=== PATIENT | male | born 1940 | race Two or more races ===

== ENCOUNTER 2017-10-16 14:23 | Emergency (ER) | payer MEDICARE, OTHER ==
[~2017-10-16] VITALS: Ht 170.2 cm; Wt 68.0 kg
--- NOTE | 2017-10-16 14:25 | NUR ---
AAOX3, BB DAUGHTER C/O CHEST PAIN STARTED 1 HR AGO. PLACED ON THE MONITOR AND HOSPITAL GOWN. RR IS EVEN AND UNLABORED WITH NAD NOTED. AWAITING MD FOR EVAL.
[2017-10-16 14:47] LABS: BASOPHILS # (AUTO) 0.2 /CMM (0.0-0.2); BASOPHILS % (AUTO) 3.1 % (0.0-2.0); EOSINOPHILS % (AUTO) 2.5 % (0.0-6.0); HEMATOCRIT 39 % (39-51); HEMOGLOBIN 12.9 g/dL (13.5-17.5); LYMPHOCYTES # (AUTO) 1.5 /CMM (0.8-4.8); LYMPHOCYTES % (AUTO) 21.9 % (20.0-44.0); MEAN CORPUSCULAR HEMOGLOBIN 30 PG (26.0-33.0); MEAN CORPUSCULAR HGB CONC 33 g/dl (31.0-36.0); MEAN CORPUSCULAR VOLUME 91 fL (80-96); MONOCYTES # (AUTO) 0.4 /CMM (0.1-1.30); MONOCYTES % (AUTO) 5.2 % (2.0-12.0); NEUTROPHILS # (AUTO) 4.5 /CMM (1.8-8.9); NEUTROPHILS % (AUTO) 67.3 % (43.0-81.0); PLATELET COUNT (AUTO) 311 /CMM (150-450); RDW COEFFICIENT OF VARIATION 13.4 (11.5-15.0); RED BLOOD CELL COUNT(AUTO) 4.27 MIL/uL (4.5-6.0); WHITE BLOOD COUNT (AUTO) 6.8 K/uL (4.3-11.0)
[2017-10-16 14:56] LABS: CALCIUM, SERUM 8.9 mg/dL (8.5-10.1); CARBON DIOXIDE 30 mmol/L (21-32); CHLORIDE 106 mmol/L (98-107); CREATININE 0.7 mg/dL (0.6-1.3); GLUCOSE 112 mg/dL (74-106); POTASSIUM 4.3 mmol/L (3.5-5.1); SODIUM SERUM 140 mmol/L (136-145); UREA NITROGEN, BLOOD 23 mg/dL (7-18)
[2017-10-16 15:00] LABS: INR 0.98 (0.85-1.15)
[2017-10-16 15:04] LABS: TROPONIN I 0.019 ng/mL (0.00-0.056)
[2017-10-16 15:38] LABS: APPEARANCE,URINE Cloudy (CLEAR); BILIRUBIN,URINE SMALL (NEGATIVE); BLOOD, URINE Large Ery/uL (NEGATIVE); KETONES,URINE Negative (NEGATIVE); LEUKOCYTE ESTERASE ,URINE Negative (NEGATIVE); NITRITE, URINE Negative (NEGATIVE); PH,URINE 5.5 (5.0-8.0); PROTEIN,URINE >=300 mg/dl (NEGATIVE); UGLUCOSE Negative (NEGATIVE)
[2017-10-16 15:39] LABS: COLOR,URINE DARK YELLOW (YELLOW)
[2017-10-16] MEDS ORDERED: LIDOCAINE 2% JEL UROJET 10 ML MM ONE (15:51)
[2017-10-16 16:01] LABS: BACTERIA,URINE None seen /HPF (None Seen); RBC,URINE 81-100 /HPF (0-2); SQUAMOUS EPITHELIAL CELL,UR Few /HPF (None Seen); WBC,URINE 0-3 /HPF (0-3)
[2017-10-16 16:02] LABS: CALCIUM OXALATE CRYSTALS,UR Moderate /HPF (None Seen); SPERM,URINE Few /HPF (None Seen)
--- NOTE | 2017-10-16 16:43 | NUR ---
IV removed. Catheter intact and site benign. Pressure and 4x4 applied to site. No bleeding noted.Patient discharged to home in stable condition. Written and verbal after care instructions given. Patient verbalizes understanding of instruction.
[2017-10-16 16:44] VITALS: BP 132/77
== END 2017-10-16 16:45 | disposition home or self-care (01) ==
LOC: ER 14:24
DX: R33.8 Other retention of urine (principal); R07.89 Other chest pain; I10 Essential (primary) hypertension; E78.00 Pure hypercholesterolemia, unspecified; Z90.89 Acquired absence of other organs; Z95.1 Presence of aortocoronary bypass graft
CPT/HCPCS: 36415; 51702; 71045; 80048; 81001; 84484; 85025; 85730; 93005; 99285; A4606; J3490; 81000-TC; Z7610

== ENCOUNTER 2019-06-21 11:34 | Emergency (ER) | payer MEDICARE, OTHER ==
[~2019-06-21] VITALS: Ht 170.2 cm; Wt 68.0 kg
--- NOTE | 2019-06-21 12:08 | NUR ---
sob x 3 days, worsening upon exertion. REPORTS SOME ABD PAIN/DISCOMFORT. O2 SAT 88%ON RA. PLACED ON 3L NC, O2 INCREASED TO 95%. PT IS MALAGASY-SPEAKING ONLY. DENIES COUGH, DIZZINESS, WEAKNESS. NO ACUTE DISTRESS NOTED. ON MONITOR AND READY FOR EVAL.
--- NOTE | 2019-06-21 12:32 | NUR ---
PT UNABLE TO PROVIDE URINE SAMPLE AT THIS TIME.
[2019-06-21 12:48] LABS: BASOPHILS % (AUTO) 0.7 % (0.0-2.0); EOSINOPHILS % (AUTO) 0.9 % (0.0-6.0); HEMATOCRIT 34 % (39-51); HEMOGLOBIN 10.9 g/dL (13.5-17.5); LYMPHOCYTES # (AUTO) 1.1 /CMM (0.8-4.8); LYMPHOCYTES % (AUTO) 16.9 % (20.0-44.0); MEAN CORPUSCULAR HGB CONC 32 g/dl (31.0-36.0); MEAN CORPUSCULAR VOLUME 84 fL (80-96); MONOCYTES # (AUTO) 0.6 /CMM (0.1-1.30); MONOCYTES % (AUTO) 9.2 % (2.0-12.0); NEUTROPHILS # (AUTO) 4.8 /CMM (1.8-8.9); NEUTROPHILS % (AUTO) 72.3 % (43.0-81.0); PLATELET COUNT (AUTO) 184 /CMM (150-450); RED BLOOD CELL COUNT(AUTO) 4.08 MIL/uL (4.5-6.0); WHITE BLOOD COUNT (AUTO) 6.6 K/uL (4.3-11.0)
[2019-06-21 12:59] LABS: CALCIUM, SERUM 8.5 mg/dL (8.5-10.1); CREATININE 1.3 mg/dL (0.6-1.3); POTASSIUM 4.4 mmol/L (3.5-5.1)
--- NOTE | 2019-06-21 13:16 | NUR ---
PT TAKEN TO RADIOLOGY VIA [facility]
[2019-06-21 13:17] LABS: ALBUMIN 3.1 g/dL (3.4-5.0); BILIRUBIN,DIRECT 0.2 mg/dL (0.0-0.2); BILIRUBIN,TOTAL 0.9 mg/dL (0.2-1.0); TOTAL PROTEIN, SERUM 6.9 g/dL (6.4-8.2)
--- NOTE | 2019-06-21 13:31 | NUR ---
PT BACK FROM RADIOLOGY. YEIMI WELL. WILL CONT TO MONITOR.
[2019-06-21] MEDS ORDERED: ACETAMINOPHEN ES 500 MG TABLET ONE (13:58)
--- NOTE | 2019-06-21 13:59 | NUR ---
Kimberlee blanc in [facility] - 06/21/19 at 1414 by JOCELIN NURSING SUP GAVE JANNETTE BED 102.
[2019-06-21] MEDS ORDERED: METO25TA20 PO (14:02)
[2019-06-21] MEDS ORDERED: AMLO2.5T4 PO (14:02)
[2019-06-21] MEDS ORDERED: BIMA2.5D5 EACHEYE (14:02)
[2019-06-21] MEDS ORDERED: TRAZ-182 PO (14:02)
[2019-06-21] MEDS ORDERED: PROP60CA38 PO (14:02)
[2019-06-21] MEDS ORDERED: ATOR40TA PO (14:02)
[2019-06-21] MEDS ORDERED: AMIO200T4 PO (14:02)
[2019-06-21] MEDS ORDERED: CLOP75TA15 PO (14:02)
[2019-06-21] MEDS ORDERED: TRAM50TA2 PO (14:02)
[2019-06-21] MEDS ORDERED: ERGO500040 PO (14:02)
[2019-06-21] MEDS ORDERED: ESCI10TA PO (14:02)
--- NOTE | 2019-06-21 14:14 | NUR ---
NURSING SUP GAVE 109 TELE.
[2019-06-21] MEDS ORDERED: ACETAMINOPHEN ES 500 MG TABLET PO ONE (14:30)
[2019-06-21] MEDS ORDERED: IV NS 0.9% 250 ML IV ONE (14:40)
[2019-06-21] MEDS ORDERED: CT SWABBABLE VALVE TRANS SET 1 EA INFUS.SET MC ONE (14:40)
[2019-06-21] MEDS ORDERED: IOHEXOL-350 100 ML VIAL IV ONE (14:40)
--- NOTE | 2019-06-21 15:47 | NUR ---
REPORT GIVEN TO CHRISTY THIBODEAUX FOR JANNETTE 109-T, NOY BRAGA ADMITTING
[2019-06-21] MEDS ORDERED: FUROSEMIDE 40 MG/4 ML VIAL ONE (16:56)
[2019-06-21] MEDS ORDERED: FUROSEMIDE 40 MG/4 ML VIAL IV STA (16:56)
--- NOTE | 2019-06-21 16:56 | NUR ---
CALLED [facility] WITH [facility]. THEY ARE ONLY ACCEPTING PTS WITH TRAUMA AND GRANDE AT THE MOMENT. TRYING [facility] LOZ[facility].
[2019-06-21 17:34] LABS: APPEARANCE,URINE Cloudy (CLEAR); BILIRUBIN,URINE Negative (NEGATIVE); BLOOD, URINE Moderate Ery/uL (NEGATIVE); COLOR,URINE Yellow (YELLOW); KETONES,URINE Negative (NEGATIVE); LEUKOCYTE ESTERASE ,URINE Small (NEGATIVE); NITRITE, URINE Positive (NEGATIVE); PROTEIN,URINE 30 mg/dl (NEGATIVE); UGLUCOSE Negative (NEGATIVE)
[2019-06-21 18:01] LABS: BACTERIA,URINE 3+ /HPF (None Seen)
--- NOTE | 2019-06-21 18:30 | NUR ---
DR. ANDREA ACCEPTING. ER TO INPATIENT FOR ICU BED. WE WILL WAIT FOR A NURSING TO NURSING REPORT AND IF BED ASSIGNMENT IS AVAILABLE, THEN THAT WILL BE GIVEN AFTER NURSING REPORT. ONCE REPORT IS GIVEN, THEN WE SET UP TRANSFER.
--- NOTE | 2019-06-21 18:52 | NUR ---
REPORT GIVEN TO CHRISTY WALLACE [phone] [facility] #2 ROOM ICU 8456
--- NOTE | 2019-06-21 19:01 | NUR ---
CALLED [facility] FOR [facility] TRANSPORT TO [facility] MALDONADO. ETA 25 MINUTES. TRIP NUMBER [id number].
[2019-06-21 19:22] VITALS: BP 126/82
--- NOTE | 2019-06-21 19:26 | NUR ---
REPORT GIVEN TO [facility] UN[facility] #[id number]
== END 2019-06-21 19:38 | disposition short-term general hospital (02) ==
LOC: ER 11:40 → TELE1 14:44 → UNDOADMIN 14:44 → ER 19:38
DX: I71.4 Abdominal aortic aneurysm, without rupture (principal); I11.0 Hypertensive heart disease with heart failure; I50.9 Heart failure, unspecified; N21.0 Calculus in bladder; I25.10 Atherosclerotic heart disease of native coronary artery without angina pectoris; E78.00 Pure hypercholesterolemia, unspecified
CPT/HCPCS: 36415; 71045; 71275; 74174; 74176; 80048; 80076; 81001; 83690; 83880; 84484; 85025; 93005; 96374; 99285; J1940; J7040; J7050; Q9967; 81000-TC

== ENCOUNTER 2019-07-27 20:35 | Inpatient (IN) | payer MEDICARE, OTHER ==
[~2019-07-27] VITALS: Ht 170.2 cm; Wt 72.1 kg
[~2019-07-27 20:35] MED LIST: AMIO200T4 PO; AMLO2.5T4 PO; ATOR40TA PO; BIMA2.5D5 EACHEYE; CLOP75TA15 PO; ERGO500040 PO; ESCI10TA PO; METO25TA20 PO; PROP60CA38 PO; TRAM50TA2 PO; TRAZ-182 PO
--- NOTE | 2019-07-27 20:35 | NUR ---
TO ER BED 2 AMBULATORY C/O SOB WITH BLE SWELLING X2 DAYS, LOWER ABD PRESSURE X2 DAYS. PT TRINIDADIAN SPEAKING ONLY, PT DAUGHTER AT BEDSIDE TO TRANSLATE. PT AAOX4 NO ACUTE DISTRESS NOTED, RESP EVEN AND UNLABORED. PLACE PT ON CARDIAC MONITORING, CONTINUOUS POX. LUNG SOUNDS CLEAR BILATERALLY ON AUSCULTATION. PENDING ER MD BULL.
--- NOTE | 2019-07-27 20:39 | NUR ---
ER MD AT BEDSIDE TO EVAL PT WITH ORDERS RECEIVED. WILL CARRY OUT ORDERS.
[2019-07-27] MEDS ORDERED: FUROSEMIDE 40 MG/4 ML VIAL ONE (20:57)
[2019-07-27] MEDS ORDERED: FUROSEMIDE 40 MG/4 ML VIAL IV ONE (21:00)
--- NOTE | 2019-07-27 21:02 | NUR ---
PT MEDICATED ORDERED.
[2019-07-27 21:03] LABS: BASOPHILS % (AUTO) 0.6 % (0.0-2.0); EOSINOPHILS % (AUTO) 2.2 % (0.0-6.0); HEMATOCRIT 32 % (39-51); LYMPHOCYTES # (AUTO) 1.1 /CMM (0.8-4.8); LYMPHOCYTES % (AUTO) 23.8 % (20.0-44.0); MEAN CORPUSCULAR HGB CONC 32 g/dl (31.0-36.0); MEAN CORPUSCULAR VOLUME 84 fL (80-96); MONOCYTES # (AUTO) 0.5 /CMM (0.1-1.30); MONOCYTES % (AUTO) 10.8 % (2.0-12.0); NEUTROPHILS % (AUTO) 62.6 % (43.0-81.0); PLATELET COUNT (AUTO) 148 /CMM (150-450); RED BLOOD CELL COUNT(AUTO) 3.79 MIL/uL (4.5-6.0); WHITE BLOOD COUNT (AUTO) 4.7 K/uL (4.3-11.0)
[2019-07-27 21:12] LABS: CALCIUM, SERUM 8.3 mg/dL (8.5-10.1); CARBON DIOXIDE 27 mmol/L (21-32); CHLORIDE 107 mmol/L (98-107); CREATININE 1.6 mg/dL (0.6-1.3); GLUCOSE 129 mg/dL (74-106); POTASSIUM 4.3 mmol/L (3.5-5.1); SODIUM SERUM 143 mmol/L (136-145); UREA NITROGEN, BLOOD 39 mg/dL (7-18)
[2019-07-27 21:24] LABS: ALANINE AMINOTRANSFERASE 50 U/L (12-78); ALBUMIN 3.1 g/dL (3.4-5.0); ALKALINE PHOSPHATASE 79 U/L (46-116); ASPARTATE AMINOTRANSFERASE 34 U/L (15-37); B-TYPE NATRIURETIC PEPTIDE 5984 PG/ML (0-125); BILIRUBIN,DIRECT 0.1 mg/dL (0.0-0.2); BILIRUBIN,TOTAL 0.4 mg/dL (0.2-1.0); TOTAL PROTEIN, SERUM 6.9 g/dL (6.4-8.2)
--- NOTE | 2019-07-27 21:24 | NUR ---
URINE SENT TO LAB
[2019-07-27 21:30] LABS: APPEARANCE,URINE SLIGHTLY HAZY (CLEAR); COLOR,URINE YELLOW (YELLOW)
[2019-07-27] MEDS ORDERED: ASPIRIN 81 MG TAB.CHEW ONE (21:30)
[2019-07-27] MEDS ORDERED: ASPIRIN 81 MG TAB.CHEW PO ONE (21:30)
[2019-07-27 21:31] LABS: BILIRUBIN,URINE NEGATIVE (NEGATIVE); BLOOD, URINE 1+ Ery/uL (NEGATIVE); KETONES,URINE NEGATIVE (NEGATIVE); PROTEIN,URINE NEGATIVE (NEGATIVE); UGLUCOSE NEGATIVE (NEGATIVE); UROBILINOGEN,URINE 0.2 EU/dL (0.2)
[2019-07-27 21:32] LABS: LEUKOCYTE ESTERASE ,URINE 3+ (NEGATIVE); NITRITE, URINE NEGATIVE (NEGATIVE); RBC,URINE 0-2 /HPF (0-2)
[2019-07-27 21:33] LABS: BACTERIA,URINE None seen /HPF (None Seen); SQUAMOUS EPITHELIAL CELL,UR Few /HPF (None Seen)
--- NOTE | 2019-07-27 21:33 | NUR ---
PER DAUGHTER PT WAS GIVEN 4 BABY ASPIRINS AND 40MG LASIX PO 2HRS AGO. VSS.
--- NOTE | 2019-07-27 21:33 | NUR ---
PER DAUGHTER DO NOT GIVE BLOOD THINNERS, "HE MIGHT HAVE SURGERY SOON"
--- NOTE | 2019-07-27 21:43 | NUR ---
ER MD SPOKE TO DR. LAUREN REGARDING PT ADMISSION. WILL CALL FOR REPORT.
--- NOTE | 2019-07-27 21:59 | NUR ---
REPORT CALLED TO ELECTRICAL PRODUCTS ENGINEERCHRISTY WRAY. WILL TRANSPORT PT VIA ACLS PROTOCOL.
[2019-07-27] MEDS ORDERED: CEFTRIAXONE 1 G in IV D5W 50 ML IV STA (22:00)
[2019-07-27] MEDS ORDERED: FURO40TA5 PO (22:00)
[2019-07-27] MEDS ORDERED: CEFTRIAXONE 1GM BAG (ER ONLY) 50 ML IV ONE (22:01)
--- NOTE | 2019-07-27 22:01 | NUR ---
MED RECON DONE.
[2019-07-27 22:40] VITALS: BP 134/84
[2019-07-27] MEDS ORDERED: HYDROCODONE/APAP 5/325MG 1 EACH TABLET PO PRN (23:30)
[2019-07-27] MEDS ORDERED: Z GUARD REMEDY 2 OZ OINT TP PRN (23:30)
[2019-07-27] MEDS ORDERED: ONDANSETRON HCL/PF 4 MG/2 ML VIAL IVP PRN (23:30)
[2019-07-27] MEDS ORDERED: ACETAMINOPHEN 325 MG TABLET PO PRN (23:30)
[2019-07-27] MEDS ORDERED: MAGNESIUM HYDROXIDE 30 ML UDC PO PRN (23:30)
[2019-07-27] MEDS ORDERED: MAG HYDROX/AL HYDROX/SIMETH 30 ML UDC PO PRN (23:30)
[2019-07-27] MEDS ORDERED: ZOLPIDEM TARTRATE 5 MG TABLET PO PRN (23:30)
[2019-07-28] VITALS (7 sets, daily range): BP systolic 123–137; BP diastolic 74–93
--- NOTE | 2019-07-28 06:08 | NUR ---
APPLICATION SUPPORT CONSULTANT NOTES AWAKE & RESPONSIVE. NOT IN ANY DISTRESS. NO SOB NOTED. DENIES ANY PAIN OR DISCOMFORT AT THIS TIME. ON TELE AFIB @ 80S WITH IV-HL PATENT & INTACT. MONITORED ACCORDINGLY. CALL LIGHT WITHIN REACH. BED IN LOWEST POSITION. SR UP X 2 FOR SAFETY. WILL ENDORSE TO NEXT SHIFT.
--- NOTE | 2019-07-28 07:30 | NUR ---
Tele/RN opening note Received patient AO x 4, able to responds all stimuli. Denied pain or any nauseate, skin is warm to touch, kept clean/dry, intact IV site. Pt has on kilgore cath. Respiratory even and unlabored in room air. Keep low position of bed with locked wheel and elevated head of bd for secure airway. Call light within reach, will contnue to monitor.
[2019-07-28 08:16] LABS: BASOPHILS % (AUTO) 0.3 % (0.0-2.0); EOSINOPHILS % (AUTO) 2.8 % (0.0-6.0); HEMATOCRIT 30 % (39-51); HEMOGLOBIN 9.5 g/dL (13.5-17.5); LYMPHOCYTES # (AUTO) 1.2 /CMM (0.8-4.8); LYMPHOCYTES % (AUTO) 28.2 % (20.0-44.0); MEAN CORPUSCULAR HGB CONC 32 g/dl (31.0-36.0); MEAN CORPUSCULAR VOLUME 82 fL (80-96); MONOCYTES # (AUTO) 0.5 /CMM (0.1-1.30); MONOCYTES % (AUTO) 10.2 % (2.0-12.0); NEUTROPHILS # (AUTO) 2.6 /CMM (1.8-8.9); NEUTROPHILS % (AUTO) 58.5 % (43.0-81.0); PLATELET COUNT (AUTO) 150 /CMM (150-450); RED BLOOD CELL COUNT(AUTO) 3.66 MIL/uL (4.5-6.0); WHITE BLOOD COUNT (AUTO) 4.4 K/uL (4.3-11.0)
[2019-07-28 08:38] LABS: CALCIUM, SERUM 7.9 mg/dL (8.5-10.1); CREATININE 1.3 mg/dL (0.6-1.3); MAGNESIUM 2.1 mg/dL (1.8-2.4); PHOSPHORUS 4.1 mg/dL (2.5-4.9); POTASSIUM 3.4 mmol/L (3.5-5.1)
[2019-07-28] MEDS: FUROSEMIDE 40 MG/4 ML VIAL IV SCH ×4 (09:00→17:26)
[2019-07-28] MEDS: METOPROLOL TARTRATE 25 MG TABLET PO SCH ×2 (09:04→17:25)
[2019-07-28] MEDS: ENOXAPARIN SODIUM 80 MG/0.8 ML DISP.SYRIN SQ SCH ×2 (09:06→21:06)
[2019-07-28 09:42] LABS: THYROID STIMULATING HORMONE 1.331 uIU/mL (0.358-3.74)
[2019-07-28] MEDS ORDERED: POTASSIUM CHLORIDE 20 MEQ TAB.PRT.SR PO SCH (11:30)
--- NOTE | 2019-07-28 14:40 | NUR ---
Patient Becca wants talk with MD, called [employer] and left message to call Laisha and her phone number.
--- NOTE | 2019-07-28 18:30 | NUR ---
Tele/RN Closing note Patient in bed comfortably, denies pain or discomfort. Skin is warm to touch, kept clean/dry, intact IV site. Pt is on kilgore catheter, and provided catheter care. Respiratory even and unlabored with room air. Keep in locked bed and low position, elevated head of bed for secure airway. Call light within reach, will endorse shift engineer.
--- NOTE | 2019-07-28 19:05 | NUR ---
cafe associate opening notes Received Pt from morning nurse. Pt is resting in bed comfortably. Pt is alert and orientedX4. Respiration is normal in room air. No SOB. No S/S of distress noted. Tele monitor showed Afib controlled HR at 86 bpm. IV sites at LAC# 20 is clean, intact and SL. Harley cath is clean, intact, patent and draining clear yellow urine. Safety precautions is maintained. Bed at low position, brakes locked, side rails upX2 and call light is within reach. Will continue to monitor.
[2019-07-28] MEDS: ATORVASTATIN 40 MG TABLET PO SCH (21:03)
[2019-07-29] VITALS (10 sets, daily range): BP systolic 112–138; BP diastolic 58–89
--- NOTE | 2019-07-29 06:50 | NUR ---
contour band saw operator vertical closing notes Pt is resting in bed comfortably. Pt is alert and orientedX4. Respiration is normal in room air. No SOB. No S/S of distress noted. Tele monitor showed Afib controlled HR at 95 bpm. VS is stable. Afebrile. Routine meds were given as ordered. IV sites at LAC# 20 is clean, intact and SL. Harley cath is clean, intact, patent and draining clear yellow urine. Kept Pt clean, dry and comfortable. All needs met and attended. Safety precautions is maintained. Bed at low position, brakes locked, side rails upX2 and call light is within reach. Will endorse to morning nurse for NASIM.
[2019-07-29 07:07] LABS: BASOPHILS % (AUTO) 0.6 % (0.0-2.0); EOSINOPHILS % (AUTO) 1.1 % (0.0-6.0); HEMATOCRIT 34 % (39-51); HEMOGLOBIN 10.9 g/dL (13.5-17.5); LYMPHOCYTES # (AUTO) 1.9 /CMM (0.8-4.8); LYMPHOCYTES % (AUTO) 30.7 % (20.0-44.0); MEAN CORPUSCULAR HGB CONC 32 g/dl (31.0-36.0); MEAN CORPUSCULAR VOLUME 81 fL (80-96); MONOCYTES # (AUTO) 0.6 /CMM (0.1-1.30); MONOCYTES % (AUTO) 10.4 % (2.0-12.0); NEUTROPHILS # (AUTO) 3.5 /CMM (1.8-8.9); NEUTROPHILS % (AUTO) 57.2 % (43.0-81.0); PLATELET COUNT (AUTO) 188 /CMM (150-450); RED BLOOD CELL COUNT(AUTO) 4.19 MIL/uL (4.5-6.0); WHITE BLOOD COUNT (AUTO) 6.2 K/uL (4.3-11.0)
[2019-07-29 07:20] LABS: ALANINE AMINOTRANSFERASE 42 U/L (12-78); ALBUMIN 3.1 g/dL (3.4-5.0); ALKALINE PHOSPHATASE 70 U/L (46-116); ASPARTATE AMINOTRANSFERASE 26 U/L (15-37); BILIRUBIN,TOTAL 0.5 mg/dL (0.2-1.0); CALCIUM, SERUM 8.9 mg/dL (8.5-10.1); CARBON DIOXIDE 31 mmol/L (21-32); CHLORIDE 103 mmol/L (98-107); CREATININE 1.7 mg/dL (0.6-1.3); GLUCOSE 111 mg/dL (74-106); MAGNESIUM 2.1 mg/dL (1.8-2.4); PHOSPHORUS 4.5 mg/dL (2.5-4.9); SODIUM SERUM 141 mmol/L (136-145); TOTAL PROTEIN, SERUM 7.1 g/dL (6.4-8.2); UREA NITROGEN, BLOOD 31 mg/dL (7-18)
--- NOTE | 2019-07-29 07:39 | NUR ---
MS/RN S/B Dr Gutierrez Seen by MD - labs ordered for tomorrow, MD to call and speak with patient's daughter to provide update as to plan of care.
[2019-07-29] MEDS: METOPROLOL TARTRATE 25 MG TABLET PO SCH ×2 (08:14→17:11)
[2019-07-29] MEDS: FUROSEMIDE 40 MG/4 ML VIAL IV SCH ×4 (08:14→17:11)
[2019-07-29] MEDS: ENOXAPARIN SODIUM 80 MG/0.8 ML DISP.SYRIN SQ SCH (08:20)
--- NOTE | 2019-07-29 08:20 | NUR ---
MS/RN Medications Patient refusing lovenox, educated as to the importance of receiving a blood thinner, but still refusung.
--- NOTE | 2019-07-29 08:50 | NUR ---
MS/RN S/B Dr Ambrose Seen by Dr Ambrose - lucy IVP ordered every three hours x3 doses.
--- NOTE | 2019-07-29 13:01 | NUR ---
MS/RN OP appointment Received call from daughter Sagar, stating that father has an outpatient appointment tomorrow morning for epidural injection in [place] at 10a. Wanted to make sure that it was documented that he had to be discharged before 9a tomorrow in order to make this. -Sagar
[2019-07-29] MEDS ORDERED: SOD FERRIC GLUC 125 MG in IV NS 0.9% 100 ML IV SCH (14:00)
--- NOTE | 2019-07-29 18:00 | NUR ---
MS/RN Lasix Lasix x3 doses administered as ordered.
--- NOTE | 2019-07-29 18:36 | NUR ---
MS/RN End note Exit care prepared ready for early discharge tomorrow. No shortness of breath noted, saturation on room air 96%. Continues to deny pain or discomfort. Updates as to plan of care provided to daughter. Will endorse to date night sitter. Per daughter, at the advice of patient's MD, do not given lovenox, plavix, aspirin coumadin as patient for epidural injectins tomorrow.
--- NOTE | 2019-07-29 19:00 | NUR ---
Received in bed eyeglasses on. smiling. speaks of going home early in the AM . denies pain no noted SOB
[2019-07-29] MEDS ORDERED: ENOXAPARIN SODIUM 40 MG/0.4 ML DISP.SYRIN SQ SCH (21:00)
[2019-07-29] MEDS: ATORVASTATIN 40 MG TABLET PO SCH (21:43)
--- NOTE | 2019-07-30 04:29 | NUR ---
ENDING NOTES: ALERT AND ORIENTATED X4 THIS 12 HOURS. PLEASENT AND SMILING, ENJOYS CONVERSATION WITH THE STAFF. TALKS ABOUT THE GOVERNMENT HIS HEALT, HOW GRATEFUL HE IS TO BE GETTING BETTER. HE AMBILATES USING A WALKER AND IS STEADY AMBULATING WITH THE WALKER. LEGS SWOLLEN 3 +. ACEWRAP ON THE BILATERAL LEGS D/T SORES ON THE HEELS. HE SLEEPS IN THE BEDSIDE CHAIR NOT GETTING INTO BED THIS 12 HOURS. NO SOB EVEN WHEN AMBULATING TO THE BATHROOM. MONGE DRAINAGE CLEAR YELLOW. MEDICATED Q 4 HOURS D/T PAIN GENERALIZED AND EFFECTIVE.
[2019-07-30 07:06] LABS: BASOPHILS % (AUTO) 0.6 % (0.0-2.0); EOSINOPHILS % (AUTO) 0.7 % (0.0-6.0); HEMATOCRIT 34 % (39-51); HEMOGLOBIN 11.1 g/dL (13.5-17.5); LYMPHOCYTES # (AUTO) 1.4 /CMM (0.8-4.8); LYMPHOCYTES % (AUTO) 28.1 % (20.0-44.0); MEAN CORPUSCULAR HGB CONC 33 g/dl (31.0-36.0); MEAN CORPUSCULAR VOLUME 81 fL (80-96); MONOCYTES # (AUTO) 0.6 /CMM (0.1-1.30); MONOCYTES % (AUTO) 12.5 % (2.0-12.0); NEUTROPHILS # (AUTO) 2.9 /CMM (1.8-8.9); NEUTROPHILS % (AUTO) 58.1 % (43.0-81.0); PLATELET COUNT (AUTO) 189 /CMM (150-450); RED BLOOD CELL COUNT(AUTO) 4.21 MIL/uL (4.5-6.0)
[2019-07-30 07:25] LABS: ALANINE AMINOTRANSFERASE 34 U/L (12-78); ALBUMIN 3.1 g/dL (3.4-5.0); ALKALINE PHOSPHATASE 66 U/L (46-116); ASPARTATE AMINOTRANSFERASE 22 U/L (15-37); BILIRUBIN,TOTAL 0.5 mg/dL (0.2-1.0); CALCIUM, SERUM 8.7 mg/dL (8.5-10.1); CARBON DIOXIDE 31 mmol/L (21-32); CHLORIDE 101 mmol/L (98-107); CREATININE 1.4 mg/dL (0.6-1.3); GLUCOSE 104 mg/dL (74-106); MAGNESIUM 2.2 mg/dL (1.8-2.4); PHOSPHORUS 4.7 mg/dL (2.5-4.9); POTASSIUM 3.2 mmol/L (3.5-5.1); SODIUM SERUM 139 mmol/L (136-145); TOTAL PROTEIN, SERUM 7.1 g/dL (6.4-8.2); UREA NITROGEN, BLOOD 32 mg/dL (7-18)
--- NOTE | 2019-07-30 07:25 | NUR ---
MS RN OPENING NOTES RECEIVED PT IN BED, AWAKE, A/O X4. PT ON RA, WITH NO ACUTE RESPIRATORY DISTRESS NOTED. PT DENIES ANY PAIN OR DISCOMFORT AT THIS TIME. PT CONCERNED ABOUT BEING DISCHARGE IN THE MORNING D/T 10AM MD APPOINTMENT. PIV TO LAC, INTACT AND OPERATIONAL. PER CONCRETE BOOM OPERATOR NURSE, DO NOT GIVE LOVENOX D/T TO PT WILL BE HAVING A SHOT GIVEN AT THE MD'S APPOINTMENT TODAY. RN TO FOLLOW-UP WITH HOSPITALIST WITH THE DISCHARGE ORDER. PT KEPT COMFORTABLE. CALL LIGHT KEPT WITHIN REACH. PT'S BED IN LOWEST, LOCKED POSITION WITH SRX3. WILL CONTINUE PLAN OF CARE.
[2019-07-30 08:00] VITALS: BP 140/80
[2019-07-30] MEDS ORDERED: POTASSIUM CHLORIDE 20 MEQ TAB.PRT.SR PO ONE (08:30)
[2019-07-30] MEDS: FUROSEMIDE 40 MG/4 ML VIAL IV SCH (08:35)
[2019-07-30 08:37] VITALS: BP 144/87
[2019-07-30] MEDS: METOPROLOL TARTRATE 25 MG TABLET PO SCH (08:37)
--- NOTE | 2019-07-30 09:15 | NUR ---
MS EVENT COORDINATOR NOTES PT AWAKE, A/O X4. PT ON RA, WITH NO ACUTE RESPIRATORY DISTRESS NOTED. PT DENIES ANY PAIN OR DISCOMFORT AT THE TIME OF DISCHARGE. PIV TO LAC, REMOVED AND APPLIED DRY DRESSING. PT TO DISCHARGE HOME THIS EARLY D/T MD'S APPOINTMENT OUTPATIENT. PT ABLE TO REVIEW AND SIGN DISCHARGE INSTRUCTIONS AND INVENTORY LIST. ALL BELONGINGS WITH THE PATIENT. ALL NEEDS AND CARE ATTENDED. FC IN PLACE. SKIN INTACT, NO PICTURES FILED IN THE CHART. HOSPITALIST/AP/DNP AND CHARGE NURSE/ROLO AWARE OF DISCHARGE. PT LET THE UNIT AT 0902. VS STABLE AND RECORDED.
== END 2019-07-30 09:00 | disposition home or self-care (01) | DRG 291 ==
LOC: ER 20:40 → TELE 21:48 → MED 07-29 10:58
PROVIDERS: ADMIT Student in an Organized Health Care Education/Training Program; ATTEND Hospitalist
DX: I11.0 Hypertensive heart disease with heart failure (principal); N17.0 Acute kidney failure with tubular necrosis; D68.59 Other primary thrombophilia; E44.1 Mild protein-calorie malnutrition; I50.23 Acute on chronic systolic (congestive) heart failure; E11.9 Type 2 diabetes mellitus without complications; I48.91 Unspecified atrial fibrillation; I25.10 Atherosclerotic heart disease of native coronary artery without angina pectoris; D63.8 Anemia in other chronic diseases classified elsewhere; E78.5 Hyperlipidemia, unspecified; Z68.24 Body mass index [BMI] 24.0-24.9, adult; Z95.1 Presence of aortocoronary bypass graft; Z91.14 Patient's other noncompliance with medication regimen; N40.0 Benign prostatic hyperplasia without lower urinary tract symptoms; E87.6 Hypokalemia; I71.4 Abdominal aortic aneurysm, without rupture
CPT/HCPCS: 36415; 71045-TC; 80048-TC; 80053-TC; 80061-TC; 80076-TC; 81000-TC; 83540-TC; 83690-TC; 83735-TC; 83880; 84100-TC; 84443-TC; 84484-TC; 85025-TC; 85730-TC; 87081-TC; 87086-TC; 87186-TC; 93307-TC; G0378; J0696; J1650; J1940; J2916; J7030; J7060

== ENCOUNTER 2019-08-09 16:44 | Emergency (ER) | payer MEDICARE, OTHER ==
[~2019-08-09] VITALS: Ht 165.1 cm; Wt 70.3 kg
[~2019-08-09 16:44] MED LIST changes: -AMLO2.5T4 PO; -BIMA2.5D5 EACHEYE; -ERGO500040 PO; -ESCI10TA PO; +FURO40TA5 PO; -PROP60CA38 PO; -TRAM50TA2 PO; -TRAZ-182 PO
--- NOTE | 2019-08-09 16:59 | NUR ---
PT AAOX4. AMBULATORY WITH STEADY GAIT. BIBSELF C/O BLOCKED CATHETER X3 HOURS SUPERVISOR ESTERS AND EMULSIFIERS. PLACED IN GOWN, ON MONITOR AND PULSE OX. VSS. AWAITING MD FOR EVAL.
--- NOTE | 2019-08-09 17:21 | NUR ---
MD AT BEDSIDE SPEAKING TO DAUGHTER.
--- NOTE | 2019-08-09 17:35 | NUR ---
EMT ON PHONE WITH PT'S UROLOGIST REGARDING CATHETER PALCEMENT.
--- NOTE | 2019-08-09 17:48 | NUR ---
CALLED ACQUISITION ANALYST UROLOGIST DR. DOWLING, SPOKE WITH DR. FRANKLIN
--- NOTE | 2019-08-09 18:05 | NUR ---
PER MD ORDER TO IRIGATE CATH. UNABLE TO FLUSH CATHETER.
--- NOTE | 2019-08-09 18:57 | NUR ---
urine sent to lab
--- NOTE | 2019-08-09 19:11 | NUR ---
Leg kilgore catheter changed per sterile protocal. Immediate output 100 ML of urine.
--- NOTE | 2019-08-09 19:12 | NUR ---
awaiting urine sample
[2019-08-09 19:21] LABS: APPEARANCE,URINE Cloudy (CLEAR); BILIRUBIN,URINE Negative (NEGATIVE); BLOOD, URINE Large Ery/uL (NEGATIVE); KETONES,URINE Negative (NEGATIVE); LEUKOCYTE ESTERASE ,URINE Negative (NEGATIVE); NITRITE, URINE Negative (NEGATIVE); PROTEIN,URINE >=300 mg/dl (NEGATIVE); UGLUCOSE Negative (NEGATIVE); UROBILINOGEN,URINE 0.2 EU/dL (0.2)
[2019-08-09 19:22] LABS: COLOR,URINE RED (YELLOW)
[2019-08-09 19:24] LABS: BACTERIA,URINE Few /HPF (None Seen); RBC,URINE TOO NUMEROUS TO COUN /HPF (0-2); SQUAMOUS EPITHELIAL CELL,UR Few /HPF (None Seen)
--- NOTE | 2019-08-09 19:38 | NUR ---
PT CLEARED FOR DISCHARGE PER DR. FRANKLIN. IV removed. Catheter intact and site benign. Pressure and 4x4 applied to site. No bleeding noted. Patient discharged to home in stable condition. Written and verbal after care instructions given. Patient verbalizes understanding of instruction. PT ambulatory with a steady gait
[2019-08-09 19:41] VITALS: BP 116/68
== END 2019-08-09 19:42 | disposition home or self-care (01) ==
LOC: ER 16:52
DX: T83.098A Other mechanical complication of other urinary catheter, initial encounter (principal); R33.9 Retention of urine, unspecified; R31.9 Hematuria, unspecified; I11.0 Hypertensive heart disease with heart failure; I50.9 Heart failure, unspecified; I48.91 Unspecified atrial fibrillation; I25.10 Atherosclerotic heart disease of native coronary artery without angina pectoris; E78.00 Pure hypercholesterolemia, unspecified; E78.5 Hyperlipidemia, unspecified; Z90.79 Acquired absence of other genital organ(s); Z95.1 Presence of aortocoronary bypass graft; Z79.899 Other long term (current) drug therapy
CPT/HCPCS: 81000-TC

== ENCOUNTER 2019-08-11 02:09 | Emergency (ER) | payer MEDICARE, OTHER ==
[~2019-08-11] VITALS: Ht 165.1 cm; Wt 70.3 kg
[2019-08-11 02:18] VITALS: BP 128/79
[2019-08-11] MEDS ORDERED: LIDOCAINE 2% JEL UROJET 10 ML MM ONE (02:32)
--- NOTE | 2019-08-11 03:01 | NUR ---
Patient discharged to home in stable condition. Written and verbal after care instructions given. Patient verbalizes understanding of instruction. ambulatory with a steady gait
== END 2019-08-11 03:02 | disposition home or self-care (01) ==
LOC: ER 02:17
DX: T83.031A Leakage of indwelling urethral catheter, initial encounter (principal); I48.91 Unspecified atrial fibrillation; I11.0 Hypertensive heart disease with heart failure; I50.9 Heart failure, unspecified; E78.00 Pure hypercholesterolemia, unspecified; Z98.890 Other specified postprocedural states; Z79.899 Other long term (current) drug therapy
CPT/HCPCS: 51702; 99284; J3490

== ENCOUNTER 2019-08-13 02:48 | Emergency (ER) | payer MEDICARE, OTHER ==
[~2019-08-13] VITALS: Ht 165.1 cm; Wt 70.3 kg
--- NOTE | 2019-08-13 03:00 | NUR ---
BIBFAMILY C/O URINARY RETENTION, MONGE CATH INSERTED X2 DAYS AGO.PT W/ A 26F F/C CONNECTED TO THE LEG BAG IN PLACE. URINARY BAG EMPTY W/ NO UO. NOTED W/ LEAKING BLOOD CLOT AROUND THE CATHETER. PT IS HAVING AN UPCOMING APPOINTMENT WITH HIS UROLOGIST AT 1400
[2019-08-13] MEDS ORDERED: LIDOCAINE 2% JEL UROJET 10 ML MM ONE (03:01)
--- NOTE | 2019-08-13 03:30 | NUR ---
F/C WAS REPLACED AND BLADDER WAS IRRIGATED W/ 500ML OF NORMAL SALINE. NOTED W/ BRIGHT RED URINE. PT TOLERATED THE PROCEDURE WELL. MONGE CATH WAS CONNECTED TO A URINARY BAG. WILL CONT TO MONITOR ,
--- NOTE | 2019-08-13 04:06 | NUR ---
F/C WAS FLUSHED W/ 60CC OF NS
--- NOTE | 2019-08-13 04:45 | NUR ---
MONGE WAS FLUSHED W/ 20CC OF NS.
--- NOTE | 2019-08-13 05:50 | NUR ---
AT THE BED SIDE SPEAKING TO THE PT AND HIS DTR
--- NOTE | 2019-08-13 06:00 | NUR ---
PT W/ CONSTANT COMPLAIN OF DISCOMFORT ON THE CATHETER SITE AND REQUESTING TO REMOVE THE CATHETER. SPOKE TO THE PT AND THE DTR. PER DR HOANG'S ORDER F/C WAS D/C'D. PT TOLERSTED THE PROCEDURE WELL ABD TO URINATE TO A 50ML OF RED URINE.
[2019-08-13] MEDS ORDERED: HYDROCODONE/APAP 5/325MG 1 EACH TABLET ONE (06:08)
--- NOTE | 2019-08-13 06:15 | NUR ---
Patient discharged to home in stable condition. Written and verbal after care instructions given. Patient verbalizes understanding of instruction. dtr was instructed to come back to the ER if pt unable to urinate in 4-6 hrs.
[2019-08-13 06:16] VITALS: BP 118/65
[2019-08-13] MEDS ORDERED: HYDROCODONE/APAP 5/325MG 1 EACH TABLET PO ONE (06:30)
== END 2019-08-13 06:17 | disposition home or self-care (01) ==
LOC: ER 02:51
DX: R33.9 Retention of urine, unspecified (principal); I11.0 Hypertensive heart disease with heart failure; I50.9 Heart failure, unspecified; I48.91 Unspecified atrial fibrillation; E78.00 Pure hypercholesterolemia, unspecified; Z98.890 Other specified postprocedural states; Z79.899 Other long term (current) drug therapy
CPT/HCPCS: 51702; 99284; J3490

== ENCOUNTER 2021-03-06 03:41 | Inpatient (IN) | payer MEDICARE, OTHER ==
[~2021-03-06] VITALS: Ht 160 cm; Wt 63.5 kg
[~2021-03-06 03:41] MED LIST changes: -AMIO200T4 PO; +AMIO200T5 PO
--- NOTE | 2021-03-06 04:18 | NUR ---
PATIENT BIBFAMILY C/O ELAVATED HEART RATE AT HOME THIS AM. PATIENT TOOK MED DISOPYRAMIDE AND XANAX 0.5 AT 0330. PATIENT IS A/O X, RR LABORED, NO SOB NOTED. PATIENT CONNECTED TO CARDIAC MONITORS AND POX.
[2021-03-06] MEDS ORDERED: FUROSEMIDE 40 MG/4 ML VIAL ONE ×2 (04:30→08:59)
[2021-03-06] MEDS ORDERED: FUROSEMIDE 40 MG/4 ML VIAL IV ONE (04:30)
--- NOTE | 2021-03-06 04:40 | NUR ---
XRAY AT BEDSIDE
--- NOTE | 2021-03-06 04:57 | NUR ---
LEFT HAND 20G INITIATED. BLOOD AND COVID SWAB SENT TO LAB
--- NOTE | 2021-03-06 05:18 | NUR ---
EPIC PANEL PAGED
[2021-03-06 05:35] LABS: BASOPHILS % (AUTO) 0.6 % (0.0-2.0); EOSINOPHILS % (AUTO) 1.9 % (0.0-6.0); HEMATOCRIT 34 % (39-51); HEMOGLOBIN 11.4 g/dL (13.5-17.5); LYMPHOCYTES # (AUTO) 1.3 K/uL (0.8-4.8); LYMPHOCYTES % (AUTO) 18.7 % (20.0-44.0); MEAN CORPUSCULAR HGB CONC 33 g/dl (31.0-36.0); MEAN CORPUSCULAR VOLUME 99 fL (80-96); MONOCYTES # (AUTO) 0.8 K/uL (0.1-1.30); MONOCYTES % (AUTO) 11.7 % (2.0-12.0); NEUTROPHILS # (AUTO) 4.7 K/uL (1.8-8.9); NEUTROPHILS % (AUTO) 67.1 % (43.0-81.0); PLATELET COUNT (AUTO) 191 K/uL (150-450); RED BLOOD CELL COUNT(AUTO) 3.45 MIL/uL (4.5-6.0)
[2021-03-06 05:46] LABS: CARBON DIOXIDE 22 mmol/L (21-32); CHLORIDE 107 mmol/L (98-107); CREATININE 1.4 mg/dL (0.6-1.3); GLUCOSE 116 mg/dL (74-106); POTASSIUM 3.7 mmol/L (3.5-5.1); SODIUM SERUM 142 mmol/L (136-145); UREA NITROGEN, BLOOD 23 mg/dL (7-18)
[2021-03-06 05:57] LABS: ALANINE AMINOTRANSFERASE 30 U/L (12-78); ALBUMIN 3.4 g/dL (3.4-5.0); ALKALINE PHOSPHATASE 80 U/L (46-116); ASPARTATE AMINOTRANSFERASE 31 U/L (15-37); BILIRUBIN,DIRECT 0.2 mg/dL (0.0-0.2); BILIRUBIN,TOTAL 0.7 mg/dL (0.2-1.0)
[2021-03-06] MEDS ORDERED: MAGNESIUM HYDROXIDE 30 ML UDC PO PRN (06:30)
[2021-03-06] MEDS ORDERED: ONDANSETRON HCL/PF 4 MG/2 ML VIAL IVP PRN (06:30)
[2021-03-06] MEDS ORDERED: HYDROCODONE/APAP 5/325MG TABLET PO PRN (06:30)
[2021-03-06] MEDS ORDERED: MAG HYDROX/AL HYDROX/SIMETH 30 ML UDC PO PRN (06:30)
[2021-03-06] MEDS ORDERED: ACETAMINOPHEN 325 MG TABLET PO PRN (06:30)
[2021-03-06] MEDS ORDERED: MORPHINE SULFATE INJ 2 MG/ML DISP.SYRIN IV PRN (06:30)
[2021-03-06] MEDS ORDERED: TEMAZEPAM 15 MG CAPSULE PO PRN (06:30)
[2021-03-06] MEDS ORDERED: Z GUARD REMEDY 4 OZ OINT TP PRN (06:30)
[2021-03-06] MEDS ORDERED: SPIR25TA6 PO (06:56)
[2021-03-06] MEDS ORDERED: RIVA15TA PO (06:56)
[2021-03-06] MEDS ORDERED: ROSU10TA29 PO (06:56)
[2021-03-06] MEDS ORDERED: TAMS-12 PO (06:56)
[2021-03-06] MEDS ORDERED: ALPR0.5T8 PO (06:56)
--- NOTE | 2021-03-06 07:05 | NUR ---
GAVE REPORT TO CHRISTY ROSSI FOR NASIM
[2021-03-06] MEDS: PANTOPRAZOLE 40 MG TABLET.DR PO SCH (07:43)
[2021-03-06] MEDS ORDERED: PANTOPRAZOLE 40 MG TABLET.DR PO ONE (08:24)
--- NOTE | 2021-03-06 08:39 | NUR ---
PT IS RESTING COMFORTABLY AT BEDSIDE, EASY TO AROUSE.
[2021-03-06] MEDS ORDERED: METOPROLOL TARTRATE 50 MG TABLET ONE (09:00)
[2021-03-06] MEDS ORDERED: FUROSEMIDE 40 MG/4 ML VIAL IV SCH (09:00)
[2021-03-06] MEDS: METOPROLOL TARTRATE 25 MG TABLET PO SCH ×2 (09:03→16:31)
[2021-03-06] MEDS: FUROSEMIDE 40 MG/4 ML VIAL IV SCH ×3 (09:30→16:31)
[2021-03-06] MEDS ORDERED: POTASSIUM CHLORIDE 20 MEQ TAB.PRT.SR PO ONE (09:58)
[2021-03-06] MEDS: POTASSIUM CHLORIDE 20 MEQ TAB.PRT.SR PO SCH ×3 (10:00→12:00)
--- NOTE | 2021-03-06 10:08 | NUR ---
REPORT GIVEN TO TYE
[2021-03-06 11:03] LABS: IRON, SERUM 40 ug/dl (50-175); TOTAL IRON BINDING CAPACITY 224 ug/dl (250-450)
--- NOTE | 2021-03-06 11:09 | NUR ---
PT TRANSPORTED WITH RN AND EMT
--- NOTE | 2021-03-06 11:10 | NUR ---
RN NOTES PATIENT TRANSFERRED TO UNIT AT ROOM 325-1 [place]IA [place], ACCOMPANIED BY STERILE PROCESSING TECHNICIAN AND ER NURSE. PATIENT ATTACHED TO EXTERNAL METAL TRIM ERECTOR, READING OF A-FIB CONTROLLED, NO CARDIAC DISTRESS NOTED.
--- NOTE | 2021-03-06 11:11 | NUR ---
RN NOTES PER ER NURSE, MONGE CATH WAS REMOVED AT ER; PATIENT ABLE TO VOID USING THE URINAL.
[2021-03-06 11:15] LABS: CHOLESTEROL 93 mg/dL (<200); FERRITIN 351 ng/mL (8-388); HDL CHOLESTEROL 24 mg/dL (40-60); LDL 47 mg/dL (0-99); THYROID STIMULATING HORMONE 0.564 uIU/mL (0.358-3.74); TRIGLYCERIDES 101 mg/dL (30-150)
[2021-03-06 11:30] VITALS: BP 137/84
--- NOTE | 2021-03-06 11:31 | NUR ---
CHRISTY GALVEZ (DTR) [phone] CALLED, NO RESPONSE.
--- NOTE | 2021-03-06 12:00 | NUR ---
RN NOTES ADMITTED THIS 80-Y.O. MALE FROM HOME, ARRIVED TO ER W/ COMPLAINT OF SOB AND TACHYCARDIA W/ ADMITTING DIAGNOSIS OF CHF EXACERBATION AND MEDICAL HISTORY OF CHF, A-FIB, CABG, AND S/P STENT PLACEMENT D/T AAA. PATIENT IS A/O X3, FRISIAN-SPEAKING, UNDERSTANDS SOME TELUGU, ABLE TO MAKE NEEDS KNOWN. BREATHING EVEN AND UNLABORED, CURRENTLY ON O2 VIA NC AT 2LPM, NO RESPIRATORY DISTRESS NOTED. IV LINE ON LEFT HAND #20 INTACT AND PATENT. BLE EDEMA +1 NOTED; PATIENT IS NON-AMBULATORY AT THIS TIME BUT ABLE TO PERFORM BED MOBILITY W/ ASSIST. ON TELE MONITORING W/ READING OF AFIB CONTROLLED, HR IN THE 70'S-80'S. ORIENTED PATIENT TO ROOM AND USE OF CALL LIGHT BUTTON FOR STAFF ASSISTANCE. SAFETY MEASURES IN PLACE: BED LOCKED AND IN LOWEST POSITION, BRAKES LOCKED, AND CALL LIGHT W/IN REACH. WILL CONTINUE TO MONITOR.
[2021-03-06 13:46] VITALS: BP 149/90
--- NOTE | 2021-03-06 13:57 | NUR ---
RN NOTES SPOKE W/ LENNY, DTR, AND INFORMED ABOUT PATIENT'S ADMISSION TO THE UNIT. DTR SPOKE W/ PATIENT VIA TELEPHONE IN THE ROOM.
[2021-03-06 16:17] VITALS: BP 135/85
[2021-03-06] MEDS: RIVAROXABAN 15 MG TABLET PO SCH (16:32)
--- NOTE | 2021-03-06 19:15 | NUR ---
RN NOTES SAFETY MEASURES MAINTAINED; PATIENT RESTING IN BED AT THIS TIME, NO COMPLAINT OF PAIN NOR CARDIAC DISCOMFORT. WILL ENDORSE TO HISTOLOGIC TECHNICIAN RN FOR NASMI.
--- NOTE | 2021-03-06 19:21 | NUR ---
TELE OPENING NOTE PATIENT RECEIVED AWAKE IN BED. A/OX4. NO S/S OF DISTRESS, BREATHING SYMMETRICAL, RIGGING AND CONTROLS AIRCRAFT MECHANIC REPORTS AFIB 102. SAFETY MEASURES IN PLACE: BED AT LOWEST POSITION, RAILS UP X2, CALL KNIGHT WITHIN REACH. WILL CONTINUE TO MONITOR.
[2021-03-06 20:00] VITALS: BP 111/65
[2021-03-07] VITALS: BP 130/90
[2021-03-07 04:00] VITALS: BP 133/87
[2021-03-07 07:05] LABS: BASOPHILS % (AUTO) 0.6 % (0.0-2.0); EOSINOPHILS % (AUTO) 2.6 % (0.0-6.0); HEMATOCRIT 35 % (39-51); HEMOGLOBIN 11.7 g/dL (13.5-17.5); LYMPHOCYTES # (AUTO) 1.2 K/uL (0.8-4.8); LYMPHOCYTES % (AUTO) 22.9 % (20.0-44.0); MEAN CORPUSCULAR HGB CONC 34 g/dl (31.0-36.0); MEAN CORPUSCULAR VOLUME 98 fL (80-96); MONOCYTES # (AUTO) 0.5 K/uL (0.1-1.30); MONOCYTES % (AUTO) 10.3 % (2.0-12.0); NEUTROPHILS # (AUTO) 3.4 K/uL (1.8-8.9); NEUTROPHILS % (AUTO) 63.6 % (43.0-81.0); PLATELET COUNT (AUTO) 204 K/uL (150-450); RED BLOOD CELL COUNT(AUTO) 3.57 MIL/uL (4.5-6.0); WHITE BLOOD COUNT (AUTO) 5.3 K/uL (4.3-11.0)
[2021-03-07 07:54] LABS: CALCIUM, SERUM 8.7 mg/dL (8.5-10.1); CREATININE 1.1 mg/dL (0.6-1.3); MAGNESIUM 1.8 mg/dL (1.8-2.4); PHOSPHORUS 3.9 mg/dL (2.5-4.9); POTASSIUM 3.4 mmol/L (3.5-5.1)
--- NOTE | 2021-03-07 07:59 | NUR ---
RN OPENING NOTE RECEIVED PATIENT IN BED. A/O X4. ON ROOM AIR, TOLERATING WELL. 02 PRN FOR SUPPORT. IV ACCESS ON L HAND #20 G, INTACT AND PATENT. SAFETY MEASURES MAINTAINED. BED IN LOWEST POSITION, BRAKES LOCKED. SIDE RAILS UP X2. CALL LIGHT WITHIN REACH. WILL CONTINUE PLAN OF CARE.
[2021-03-07 08:00] VITALS: BP 133/73
[2021-03-07 08:21] LABS: BILIRUBIN,URINE NEGATIVE (NEGATIVE); LEUKOCYTE ESTERASE ,URINE NEGATIVE (NEGATIVE); NITRITE, URINE NEGATIVE (NEGATIVE); PH,URINE 5.5 (5.0-8.0); PROTEIN,URINE NEGATIVE (NEGATIVE); UGLUCOSE NEGATIVE (NEGATIVE); UROBILINOGEN,URINE 0.2 EU/dL (0.2)
[2021-03-07] MEDS ORDERED: ALPRAZOLAM 0.5 MG TABLET PO PRN (08:30)
[2021-03-07 08:37] LABS: COLOR,URINE LIGHT YELLOW (YELLOW)
[2021-03-07 08:47] LABS: THYROID STIMULATING HORMONE 0.367 uIU/mL (0.358-3.74)
[2021-03-07] MEDS ORDERED: FUROSEMIDE 40 MG TABLET PO SCH (09:00)
[2021-03-07] MEDS: PANTOPRAZOLE 40 MG TABLET.DR PO SCH (09:04)
[2021-03-07] MEDS: AMIODARONE HCL 200 MG TABLET PO SCH ×2 (09:04→16:25)
[2021-03-07] MEDS: SPIRONOLACTONE 25 MG TABLET PO SCH (09:04)
[2021-03-07] MEDS: METOPROLOL TARTRATE 25 MG TABLET PO SCH ×2 (09:05→16:25)
[2021-03-07] MEDS: POTASSIUM CHLORIDE 20 MEQ TAB.PRT.SR PO SCH ×3 (09:54→12:39)
[2021-03-07] MEDS: FUROSEMIDE 40 MG/4 ML VIAL IV SCH ×3 (09:54→16:31)
--- NOTE | 2021-03-07 11:19 | NUR ---
RN NOTE FUROSEMIDE 40 MG PO WAS GIVEN. THEN DR RIOS ORDERED ANOTHER LASIX 40 MG IV. ORDER WAS CLARIFIED WITH HIM AND CARRIED OUT.
[2021-03-07 16:00] VITALS: BP 123/90
[2021-03-07] MEDS: RIVAROXABAN 15 MG TABLET PO SCH (16:26)
--- NOTE | 2021-03-07 18:44 | NUR ---
RN CLOSING NOTE PATIENT RESTING IN BED. A/O X4. AMBULATORY. ON ROOM AIR, TOLERATING WELL. DENIES SOB. IN NO APPARENT DISTRESS. IV ACCESS ON L HAND #20 G, INTACT AND PATENT. DUE MEDS GIVEN ORDERED. ALL NEEDS HAVE BEEN MET AND ATTENDED. SAFETY MEASURES MAINTAINED. BED IN LOWEST POSITION, BRAKES LOCKED. SIDE RAILS UP X2. KEPT CALL LIGHT WITHIN REACH. WILL ENDORSE CONTINUITY OF CARE TO ONCOMING SHIFT.
--- NOTE | 2021-03-07 19:35 | NUR ---
BEFORE AND AFTER SCHOOL DAYCARE WORKER OPENING NOTES PATIENT RESTING IN BED, ALERT/ORIENTED X 4. PT ON EXTERNAL RADARMAN READING A. FIB, HR: 107. PT STABLE ON RA, NO S/S OF DISTRESS OR SOB NOTED, BREATHING EVEN AND UNLABORED, SPO2: 97%. IV ACCESS ON LEFT HAND #20G INTACT AND PATENT. PATIENT IS AMBULATORY WITH BRP. SAFETY MEASURES IN PLACE: CALL LIGHT WITHIN REACH, SIDE RAILS UP X 2, BED LOCKED IN LOW POSITION. WILL CONTINUE TO MONITOR PATIENT
[2021-03-07 20:33] VITALS: BP 108/80
[2021-03-07] MEDS ORDERED: TAMSULOSIN 0.4 MG CAP.SR.24H PO SCH (22:00)
[2021-03-07] MEDS ORDERED: ATORVASTATIN 10 MG TABLET PO SCH (22:00)
[2021-03-08] VITALS: BP 108/70
[2021-03-08 04:35] VITALS: BP 98/58
[2021-03-08 06:28] LABS: BASOPHILS % (AUTO) 0.4 % (0.0-2.0); EOSINOPHILS % (AUTO) 1.2 % (0.0-6.0); HEMATOCRIT 37 % (39-51); HEMOGLOBIN 12.5 g/dL (13.5-17.5); LYMPHOCYTES # (AUTO) 1.4 K/uL (0.8-4.8); LYMPHOCYTES % (AUTO) 22.9 % (20.0-44.0); MEAN CORPUSCULAR HGB CONC 34 g/dl (31.0-36.0); MEAN CORPUSCULAR VOLUME 97 fL (80-96); MONOCYTES # (AUTO) 0.8 K/uL (0.1-1.30); MONOCYTES % (AUTO) 13.4 % (2.0-12.0); NEUTROPHILS # (AUTO) 3.8 K/uL (1.8-8.9); NEUTROPHILS % (AUTO) 62.1 % (43.0-81.0); PLATELET COUNT (AUTO) 229 K/uL (150-450); RED BLOOD CELL COUNT(AUTO) 3.83 MIL/uL (4.5-6.0); WHITE BLOOD COUNT (AUTO) 6.1 K/uL (4.3-11.0)
[2021-03-08 07:05] LABS: ALBUMIN 3.3 g/dL (3.4-5.0); BILIRUBIN,TOTAL 1.2 mg/dL (0.2-1.0); CALCIUM, SERUM 9.1 mg/dL (8.5-10.1); CREATININE 1.3 mg/dL (0.6-1.3); MAGNESIUM 2.1 mg/dL (1.8-2.4); PHOSPHORUS 3.8 mg/dL (2.5-4.9); POTASSIUM 4.3 mmol/L (3.5-5.1); TOTAL PROTEIN, SERUM 7.1 g/dL (6.4-8.2)
--- NOTE | 2021-03-08 07:30 | NUR ---
CORPORATE TRAVEL COORDINATOR OPENING NOTE RECEIVED PATIENT IN BED. A/O X3. ON ROOM AIR, TOLERATING WELL. 02 PRN FOR SUPPORT. IV ACCESS ON L HAND #20 G, INTACT AND PATENT. NO BLEEDING NOTED. NO PAIN NOTED. NO RESPIRATORY DISTRESS NOTED.SAFETY MEASURES MAINTAINED. BED IN LOWEST POSITION AND LOCKED. SIDE RAILS UP X2. CALL LIGHT AND TABLE WITHIN REACH. WILL CONTINUE TO MONITOR.
[2021-03-08] MEDS: PANTOPRAZOLE 40 MG TABLET.DR PO SCH (08:08)
[2021-03-08] MEDS: METOPROLOL TARTRATE 25 MG TABLET PO SCH (08:50)
[2021-03-08] MEDS: SPIRONOLACTONE 25 MG TABLET PO SCH (08:50)
[2021-03-08 08:51] VITALS: BP 101/64
[2021-03-08] MEDS: AMIODARONE HCL 200 MG TABLET PO SCH (08:51)
--- NOTE | 2021-03-08 14:05 | NUR ---
GREASER HELPER NOTE; DISCHARGE PATIENT IN STABLE CONDITION . VITAL SIGNS NORMAL. PATIENT'S DAUGHTER VERBALIZED UNDERSTANDING AND SIGNED THE PAPERS FOR DISCHARGE. IV ACCESS REMOVED AND COVERED WITH DRY DRESSING. NO BLEEDING NOTED. BELONGINGS ACCOUNTED AND SIGNED FOR.ARM BAND REMOVED. WALK WITH THE PATIENT AND HIS DAUGHTER TO THE LOBBY AT 1405. PATIENT LEFT THE UNIT IN STABLE CONDITION. MD AND CHARGE NURSE AWARE OF THE DISCHARGE.
== END 2021-03-08 14:00 | disposition home or self-care (01) | DRG 291 ==
LOC: ER 03:43 → TRANSITION 07:00 → TELE 09:59
PROVIDERS: ADMIT Nurse Practitioner Acute Care; ATTEND Nurse Practitioner Acute Care
DX: I13.0 Hypertensive heart and chronic kidney disease with heart failure and stage 1 through stage 4 chronic kidney disease, or unspecified chronic kidney disease (principal); N17.0 Acute kidney failure with tubular necrosis; I50.43 Acute on chronic combined systolic (congestive) and diastolic (congestive) heart failure; D68.59 Other primary thrombophilia; N18.9 Chronic kidney disease, unspecified; I25.10 Atherosclerotic heart disease of native coronary artery without angina pectoris; I48.91 Unspecified atrial fibrillation; N13.9 Obstructive and reflux uropathy, unspecified; Z20.822 Contact with and (suspected) exposure to COVID-19; E78.5 Hyperlipidemia, unspecified; E78.00 Pure hypercholesterolemia, unspecified; N40.0 Benign prostatic hyperplasia without lower urinary tract symptoms; Z90.49 Acquired absence of other specified parts of digestive tract; Z79.02 Long term (current) use of antithrombotics/antiplatelets; Z79.01 Long term (current) use of anticoagulants; Z79.899 Other long term (current) drug therapy; Z87.891 Personal history of nicotine dependence; Z90.79 Acquired absence of other genital organ(s); Z86.79 Personal history of other diseases of the circulatory system; Z95.1 Presence of aortocoronary bypass graft; Z87.448 Personal history of other diseases of urinary system; D63.8 Anemia in other chronic diseases classified elsewhere
CPT/HCPCS: 36415; 71045-TC; 80048-TC; 80053-TC; 80061-TC; 80076-TC; 82728-TC; 83540-TC; 83735-TC; 83880; 84100-TC; 84439-TC; 84443-TC; 84484-TC; 85025-TC; 85730-TC; 87081-TC; 93307-TC; C9803; G0378; J1940

== ENCOUNTER 2023-05-02 21:50 | Inpatient (IN) | payer MEDICARE, BC ==
[~2023-05-02] VITALS: Ht 170.2 cm; Wt 74.8 kg
[~2023-05-02 21:50] MED LIST changes: +ALPR0.5T8 PO; -ATOR40TA PO; -CLOP75TA15 PO; +RIVA15TA PO; +ROSU10TA29 PO; +SPIR25TA6 PO; +TAMS-12 PO
[2023-05-02] MEDS ORDERED: NITROGLYCERIN 0.4 MG/TAB BOTTLE ONE (22:32)
[2023-05-02] MEDS ORDERED: ASPIRIN 325 MG TABLET ONE (22:32)
[2023-05-02] MEDS: ASPIRIN 325 MG TABLET PO ONE (22:45)
[2023-05-02] MEDS: NITROGLYCERIN 0.4 MG/TAB BOTTLE SL ONE (22:45)
[2023-05-02 23:09] LABS: BASOPHILS % (AUTO) 0.1 % (0.0-2.0); EOSINOPHILS % (AUTO) 0.4 % (0.0-6.0); HEMATOCRIT 49 % (39-51); HEMOGLOBIN 16.7 g/dL (13.5-17.5); LYMPHOCYTES # (AUTO) 1.4 K/uL (0.8-4.8); LYMPHOCYTES % (AUTO) 17.4 % (20.0-44.0); MEAN CORPUSCULAR HEMOGLOBIN 34 PG (26.0-33.0); MEAN CORPUSCULAR HGB CONC 34 g/dl (31.0-36.0); MEAN CORPUSCULAR VOLUME 100 fL (80-96); MONOCYTES # (AUTO) 0.8 K/uL (0.1-1.30); MONOCYTES % (AUTO) 9.5 % (2.0-12.0); NEUTROPHILS # (AUTO) 5.8 K/uL (1.8-8.9); NEUTROPHILS % (AUTO) 72.6 % (43.0-81.0); PLATELET COUNT (AUTO) 133 K/uL (150-450); RED CELL DISTRIBUTION WIDTH 15.9 % (11.5-15.0)
[2023-05-02 23:19] LABS: CALCIUM, SERUM 9.5 mg/dL (8.5-10.1); CARBON DIOXIDE 25 mmol/L (21-32); CHLORIDE 98 mmol/L (98-107); CREATININE 1.8 mg/dL (0.6-1.3); GLUCOSE 124 mg/dL (74-106); SODIUM SERUM 132 mmol/L (136-145); UREA NITROGEN, BLOOD 49 mg/dL (7-18)
[2023-05-02 23:32] LABS: NT-PRO BNP 1172 pg/mL (0-125)
[2023-05-03] MEDS: FUROSEMIDE 40 MG/4 ML VIAL IV ONE (00:21)
[2023-05-03 00:45] VITALS: BP 124/82; TEMP 98.3; O2SAT 96
[2023-05-03] MEDS ORDERED: MAG HYDROX/AL HYDROX/SIMETH 30 ML UDC PO PRN (01:00)
[2023-05-03] MEDS ORDERED: ENOXAPARIN SODIUM 30 MG/0.3 ML DISP.SYRIN SQ SCH (01:00)
[2023-05-03] MEDS ORDERED: NITROGLYCERIN 0.4 MG/TAB BOTTLE SL PRN (01:00)
[2023-05-03] MEDS ORDERED: MAGNESIUM HYDROXIDE 30 ML UDC PO PRN (01:00)
[2023-05-03] MEDS ORDERED: Z GUARD REMEDY 4 OZ OINT TP PRN (01:00)
[2023-05-03] MEDS ORDERED: ZOLPIDEM TARTRATE 5 MG TABLET PO PRN (01:00)
[2023-05-03] MEDS ORDERED: MORPHINE SULFATE INJ 2 MG/ML DISP.SYRIN IV PRN (01:00)
[2023-05-03] MEDS ORDERED: ALPRAZOLAM 0.5 MG TABLET PO PRN (01:00)
[2023-05-03] MEDS ORDERED: ONDANSETRON HCL/PF 4 MG/2 ML VIAL IVP PRN (01:00)
[2023-05-03] MEDS ORDERED: ACETAMINOPHEN 325 MG TABLET PO PRN (01:00)
[2023-05-03 04:00] VITALS: BP 126/74; TEMP 97.8; O2SAT 96
[2023-05-03] MEDS: PANTOPRAZOLE 40 MG TABLET.DR PO SCH (07:50)
[2023-05-03 08:00] VITALS: BP 124/89; TEMP 97.7; O2SAT 96
[2023-05-03] MEDS: ASPIRIN EC 81 MG TABLET.DR PO SCH (08:36)
[2023-05-03] MEDS: AMIODARONE HCL 200 MG TABLET PO SCH (08:37)
[2023-05-03] MEDS: METOPROLOL TARTRATE 25 MG TABLET PO SCH (08:37)
[2023-05-03] MEDS: RIVAROXABAN 15 MG TABLET PO SCH (10:29)
[2023-05-03 12:00] VITALS: BP 105/75; TEMP 97.7; O2SAT 97
[2023-05-03] MEDS: HYDROCODONE/APAP 5/325MG TABLET PO PRN (13:43)
[2023-05-03] MEDS ORDERED: METF-440 PO (13:53)
[2023-05-03] MEDS ORDERED: CELE200C PO (13:53)
[2023-05-03] MEDS ORDERED: SACU1TAB7 PO (13:53)
[2023-05-03] MEDS ORDERED: PRIM50TA27 PO (13:53)
[2023-05-03] MEDS ORDERED: ESCI20TA PO (13:53)
[2023-05-03 16:00] VITALS: BP 105/75; TEMP 97.7; O2SAT 95
[2023-05-03 20:00] VITALS: BP 96/56; TEMP 97.8
[2023-05-03] MEDS: ATORVASTATIN 10 MG TABLET PO SCH (22:57)
[2023-05-03] MEDS: TAMSULOSIN 0.4 MG CAP.SR.24H PO SCH (22:57)
[2023-05-04 01:01] VITALS: BP 101/77; TEMP 98.5; O2SAT 95
[2023-05-04 04:23] VITALS: BP 121/72; TEMP 97.3; O2SAT 95
[2023-05-04 06:52] LABS: BASOPHILS % (AUTO) 0.3 % (0.0-2.0); EOSINOPHILS % (AUTO) 0.2 % (0.0-6.0); HEMATOCRIT 47 % (39-51); LYMPHOCYTES # (AUTO) 1.1 K/uL (0.8-4.8); LYMPHOCYTES % (AUTO) 17.2 % (20.0-44.0); MEAN CORPUSCULAR HEMOGLOBIN 34 PG (26.0-33.0); MEAN CORPUSCULAR HGB CONC 34 g/dl (31.0-36.0); MEAN CORPUSCULAR VOLUME 100 fL (80-96); MONOCYTES # (AUTO) 0.6 K/uL (0.1-1.30); MONOCYTES % (AUTO) 8.5 % (2.0-12.0); NEUTROPHILS # (AUTO) 4.9 K/uL (1.8-8.9); NEUTROPHILS % (AUTO) 73.8 % (43.0-81.0); PLATELET COUNT (AUTO) 126 K/uL (150-450); RED BLOOD CELL COUNT(AUTO) 4.68 MIL/uL (4.5-6.0); RED CELL DISTRIBUTION WIDTH 15.7 % (11.5-15.0); WHITE BLOOD COUNT (AUTO) 6.6 K/uL (4.3-11.0)
[2023-05-04 07:27] LABS: ALANINE AMINOTRANSFERASE 17 U/L (12-78); ALBUMIN 3.3 g/dL (3.4-5.0); ALKALINE PHOSPHATASE 104 U/L (46-116); ASPARTATE AMINOTRANSFERASE 15 U/L (15-37); BILIRUBIN,TOTAL 0.8 mg/dL (0.2-1.0); CALCIUM, SERUM 9.2 mg/dL (8.5-10.1); CARBON DIOXIDE 23 mmol/L (21-32); CHLORIDE 98 mmol/L (98-107); CREATININE 1.8 mg/dL (0.6-1.3); GLUCOSE 119 mg/dL (74-106); MAGNESIUM 2.8 mg/dL (1.8-2.4); PHOSPHORUS 4.1 mg/dL (2.5-4.9); POTASSIUM 4.3 mmol/L (3.5-5.1); SODIUM SERUM 132 mmol/L (136-145); TOTAL PROTEIN, SERUM 7.3 g/dL (6.4-8.2); UREA NITROGEN, BLOOD 56 mg/dL (7-18)
[2023-05-04 07:47] LABS: CHOLESTEROL 167 mg/dL (<200); CREATINE KINASE, TOTAL 54 U/L (39-308); HDL CHOLESTEROL 36 mg/dL (40-60); LDL 78 mg/dL (0-99); THYROID STIMULATING HORMONE 0.533 uIU/mL (0.358-3.74); TRIGLYCERIDES 201 mg/dL (30-150)
[2023-05-04 08:00] VITALS: BP 98/76; TEMP 98.1; O2SAT 98
[2023-05-04] MEDS ORDERED: FUROSEMIDE 40 MG TABLET PO SCH (09:00)
[2023-05-04] MEDS ORDERED: SPIRONOLACTONE 25 MG TABLET PO SCH (09:00)
[2023-05-04] MEDS ORDERED: RIVA15TA PO (10:14)
[2023-05-04 12:00] VITALS: BP 110/75; TEMP 97.7; O2SAT 95
[2023-05-05 09:08] LABS: PTH, INTACT 30 pg/mL (15-65)
[2023-05-05 12:09] LABS: *SPE A/G RATIO 0.8 (0.7-1.7); *SPE ALBUMIN 3.2 g/dL (2.9-4.4); *SPE ALPHA-1-GLOBULIN 0.3 g/dL (0.0-0.4); *SPE BETA GLOBULIN 1.3 g/dL (0.7-1.3); *SPE GLOBULIN, TOTAL 3.8 g/dL (2.2-3.9); *SPE M-SPIKE Not Observed g/dL (Not Observed); *SPEGAMMA GLOBULIN 1.3 g/dL (0.4-1.8)
== END 2023-05-04 15:45 | disposition home or self-care (01) | DRG 303 ==
LOC: ER 22:00 → TELE-TD 05-03 00:03 → TELE1 05-03 02:52 → MEDSG1 05-04 09:58
PROVIDERS: ADMIT Internal Medicine; ATTEND Internal Medicine
DX: I25.119 Atherosclerotic heart disease of native coronary artery with unspecified angina pectoris (principal); I13.0 Hypertensive heart and chronic kidney disease with heart failure and stage 1 through stage 4 chronic kidney disease, or unspecified chronic kidney disease; E87.1 Hypo-osmolality and hyponatremia; I50.32 Chronic diastolic (congestive) heart failure; N17.9 Acute kidney failure, unspecified; G93.40 Encephalopathy, unspecified; E78.00 Pure hypercholesterolemia, unspecified; E11.22 Type 2 diabetes mellitus with diabetic chronic kidney disease; Z20.822 Contact with and (suspected) exposure to COVID-19; N18.9 Chronic kidney disease, unspecified; Z95.1 Presence of aortocoronary bypass graft; Z87.891 Personal history of nicotine dependence; Z86.73 Personal history of transient ischemic attack (TIA), and cerebral infarction without residual deficits; I48.91 Unspecified atrial fibrillation; E78.5 Hyperlipidemia, unspecified; F32.A Depression, unspecified; Z79.899 Other long term (current) drug therapy; Z79.01 Long term (current) use of anticoagulants; D69.6 Thrombocytopenia, unspecified; R62.7 Adult failure to thrive; Z86.79 Personal history of other diseases of the circulatory system; N40.0 Benign prostatic hyperplasia without lower urinary tract symptoms; N13.9 Obstructive and reflux uropathy, unspecified
CPT/HCPCS: 36415; 70450-TC; 71045-TC; 76770-TC; 80048-TC; 80053-TC; 80061-TC; 82550-TC; 83735-TC; 83880; 83970; 84100-TC; 84155; 84165; 84443-TC; 84484-TC; 85025-TC; 93307-TC; G0378

== ENCOUNTER 2023-09-20 19:47 | Inpatient (IN) | payer MEDICARE, BC ==
[~2023-09-20] VITALS: Ht 170.2 cm; Wt 70.8 kg
[~2023-09-20 19:47] MED LIST changes: +CELE200C PO; +ESCI20TA PO; +METF-440 PO; +PRIM50TA27 PO; +SACU1TAB7 PO; -TAMS-12 PO
[2023-09-20 20:29] LABS: BASOPHILS % (AUTO) 0.5 % (0.0-2.0); HEMATOCRIT 41 % (39-51); LYMPHOCYTES # (AUTO) 0.8 K/uL (0.8-4.8); LYMPHOCYTES % (AUTO) 10.3 % (20.0-44.0); MEAN CORPUSCULAR HEMOGLOBIN 34 PG (26.0-33.0); MEAN CORPUSCULAR HGB CONC 34 g/dl (31.0-36.0); MEAN CORPUSCULAR VOLUME 99 fL (80-96); MONOCYTES # (AUTO) 0.9 K/uL (0.1-1.30); MONOCYTES % (AUTO) 12.4 % (2.0-12.0); NEUTROPHILS # (AUTO) 5.7 K/uL (1.8-8.9); NEUTROPHILS % (AUTO) 76.8 % (43.0-81.0); PLATELET COUNT (AUTO) 140 K/uL (150-450); RED BLOOD CELL COUNT(AUTO) 4.13 MIL/uL (4.5-6.0); RED CELL DISTRIBUTION WIDTH 15.2 % (11.5-15.0); WHITE BLOOD COUNT (AUTO) 7.5 K/uL (4.3-11.0)
[2023-09-20 20:51] LABS: ALANINE AMINOTRANSFERASE 24 U/L (12-78); ALBUMIN 2.8 g/dL (3.4-5.0); ALKALINE PHOSPHATASE 85 U/L (46-116); ASPARTATE AMINOTRANSFERASE 16 U/L (15-37); BILIRUBIN,DIRECT 0.3 mg/dL (0.0-0.2); CALCIUM, SERUM 8.7 mg/dL (8.5-10.1); CARBON DIOXIDE 24 mmol/L (21-32); CHLORIDE 102 mmol/L (98-107); CREATININE 1.1 mg/dL (0.6-1.3); GLUCOSE 113 mg/dL (74-106); POTASSIUM 4.3 mmol/L (3.5-5.1); SODIUM SERUM 139 mmol/L (136-145); TOTAL PROTEIN, SERUM 7.2 g/dL (6.4-8.2); UREA NITROGEN, BLOOD 19 mg/dL (7-18)
[2023-09-20 20:55] LABS: LACTIC ACID 1.6 mmol/L (0.4-2.0)
[2023-09-20 21:16] LABS: APPEARANCE,URINE Clear (CLEAR); BILIRUBIN,URINE SMALL (NEGATIVE); BLOOD, URINE Negative Ery/uL (NEGATIVE); COLOR,URINE YELLOW (YELLOW); KETONES,URINE Trace mg/dL (NEGATIVE); LEUKOCYTE ESTERASE ,URINE Negative (NEGATIVE); NITRITE, URINE Negative (NEGATIVE); PROTEIN,URINE Negative (NEGATIVE); UGLUCOSE Negative (NEGATIVE)
[2023-09-20 21:18] LABS: INR 1.08 (0.91-1.10); PROTHROMBIN TIME 11.4 SECS (9.2-11.1)
[2023-09-20 21:45] LABS: ADD URINE CULTURE NO; BACTERIA,URINE 1+ /HPF (None Seen); RBC,URINE 0-2 /HPF (0-2); SQUAMOUS EPITHELIAL CELL,UR Few /HPF (None Seen); WBC,URINE 0-2 /HPF (0-3)
[2023-09-20] MEDS ORDERED: VANCOMYCIN 1 GM /D5W 250 ML PB IV ONE (22:02)
[2023-09-20] MEDS ORDERED: CEFTRIAXONE 1GM BAG (ER ONLY) 50 ML IV ONE (22:02)
[2023-09-20] MEDS: CEFTRIAXONE 1GM BAG (ER ONLY) 1 GM/50 ML PIGGYBACK IV ONE (22:03)
[2023-09-20] MEDS ORDERED: VANCOMYCIN 500 MG VIAL ONE (22:07)
[2023-09-20] MEDS ORDERED: WATER FOR INJECTION,STERILE 10 ML ONE (22:11)
[2023-09-20] MEDS ORDERED: ACETAMINOPHEN 325 MG TABLET PO PRN (22:30)
[2023-09-20] MEDS: VANCOMYCIN HCL 1.25 GM in IV D5W 260 ML IV ONE (22:30)
[2023-09-20] MEDS ORDERED: ALPRAZOLAM 0.5 MG TABLET PO PRN (22:30)
[2023-09-20] MEDS ORDERED: MAGNESIUM HYDROXIDE 30 ML UDC PO PRN (22:30)
[2023-09-20] MEDS ORDERED: DEXTROSE 50%-WATER 50 ML DISP.SYRIN IV PRN ×2 (22:30→23:00)
[2023-09-20] MEDS ORDERED: INSULIN REGULAR, HUMAN 100 UNIT/ML 3 ML VIAL SQ PRN (22:30)
[2023-09-20] MEDS ORDERED: *INSULIN REGULAR(HUMULIN R)HUM 100 UNIT/ML VIAL SQ PRN (22:30)
[2023-09-20] MEDS ORDERED: ONDANSETRON HCL/PF 4 MG/2 ML VIAL IVP PRN (22:30)
[2023-09-20] MEDS ORDERED: MAG HYDROX/AL HYDROX/SIMETH 30 ML UDC PO PRN (22:30)
[2023-09-20] MEDS ORDERED: CELECOXIB 100 MG CAPSULE PO PRN (23:30)
[2023-09-21] MEDS: IV NS 0.9% 1,000 ML IV PRN (01:01)
[2023-09-21 01:30] VITALS: BP 127/96; TEMP 98.4; O2SAT 94
[2023-09-21 04:35] VITALS: BP 126/86; TEMP 98.4; O2SAT 98
[2023-09-21] MEDS: BLOOD SUGAR DIAGNOSTIC 1 EACH STRIP IN SCH (06:36)
[2023-09-21 06:50] LABS: BASOPHILS % (AUTO) 0.3 % (0.0-2.0); EOSINOPHILS % (AUTO) 0.2 % (0.0-6.0); HEMATOCRIT 39 % (39-51); HEMOGLOBIN 13.1 g/dL (13.5-17.5); LYMPHOCYTES # (AUTO) 0.9 K/uL (0.8-4.8); LYMPHOCYTES % (AUTO) 13.6 % (20.0-44.0); MEAN CORPUSCULAR HEMOGLOBIN 34 PG (26.0-33.0); MEAN CORPUSCULAR HGB CONC 34 g/dl (31.0-36.0); MEAN CORPUSCULAR VOLUME 99 fL (80-96); MONOCYTES # (AUTO) 0.9 K/uL (0.1-1.30); MONOCYTES % (AUTO) 13.1 % (2.0-12.0); NEUTROPHILS # (AUTO) 4.8 K/uL (1.8-8.9); NEUTROPHILS % (AUTO) 72.8 % (43.0-81.0); PLATELET COUNT (AUTO) 125 K/uL (150-450); RED BLOOD CELL COUNT(AUTO) 3.88 MIL/uL (4.5-6.0); WHITE BLOOD COUNT (AUTO) 6.6 K/uL (4.3-11.0)
[2023-09-21] MEDS ORDERED: BLOOD SUGAR DIAGNOSTIC 1 EACH STRIP VI SCH (07:30)
[2023-09-21 07:54] LABS: CALCIUM, SERUM 8.4 mg/dL (8.5-10.1); CARBON DIOXIDE 23 mmol/L (21-32); CHLORIDE 104 mmol/L (98-107); CREATININE 0.8 mg/dL (0.6-1.3); GLUCOSE 98 mg/dL (74-106); MAGNESIUM 2.2 mg/dL (1.8-2.4); PHOSPHORUS 3.5 mg/dL (2.5-4.9); POTASSIUM 4.1 mmol/L (3.5-5.1); SODIUM SERUM 138 mmol/L (136-145); UREA NITROGEN, BLOOD 16 mg/dL (7-18)
[2023-09-21 08:00] VITALS: BP 130/86; TEMP 98.4; O2SAT 97
[2023-09-21] MEDS ORDERED: FUROSEMIDE 40 MG TABLET PO SCH (09:00)
[2023-09-21] MEDS ORDERED: AMIODARONE HCL 200 MG TABLET PO SCH (09:00)
[2023-09-21] MEDS: SPIRONOLACTONE 25 MG TABLET PO SCH (12:35)
[2023-09-21] MEDS: SACUBITRIL/VALSARTAN 1 EACH TABLET PO SCH (12:35)
[2023-09-21] MEDS: METOPROLOL TARTRATE 25 MG TABLET PO SCH (12:36)
[2023-09-21] MEDS: ATORVASTATIN 40 MG TABLET PO SCH (12:36)
[2023-09-21] MEDS: ESCITALOPRAM OXALATE (10 MG) 10 MG TABLET PO SCH (12:36)
[2023-09-21] MEDS: VANCOMYCIN 1 GM in IV D5W 250 ML IV SCH (12:37)
[2023-09-21] MEDS: INSULIN REGULAR, HUMAN 100 UNIT/ML 3 ML VIAL SQ PRN (12:38)
[2023-09-21] MEDS ORDERED: RIVAROXABAN 15 MG TABLET PO SCH (18:00)
[2023-09-21 18:37] LABS: C-REACTIVE PROTEIN 7.24 mg/dL (0.0-0.30)
[2023-09-21 18:45] LABS: THYROID STIMULATING HORMONE 0.02 uIU/mL (0.358-3.74)
[2023-09-21 20:26] VITALS: BP 102/71; TEMP 98.1; O2SAT 94
[2023-09-21] MEDS: CEFTRIAXONE 1 G in IV D5W 50 ML IV SCH (21:17)
[2023-09-21] MEDS: PRIMIDONE 50 MG TABLET PO SCH (22:13)
[2023-09-22 00:16] VITALS: BP 97/75; TEMP 97.5; O2SAT 97
[2023-09-22 04:17] VITALS: BP 96/79; TEMP 97.7; O2SAT 97
[2023-09-22 07:52] LABS: BASOPHILS % (AUTO) 0.4 % (0.0-2.0); EOSINOPHILS # (AUTO) 0.1 K/uL (0.0-0.7); EOSINOPHILS % (AUTO) 1.3 % (0.0-6.0); HEMATOCRIT 38 % (39-51); LYMPHOCYTES # (AUTO) 0.9 K/uL (0.8-4.8); LYMPHOCYTES % (AUTO) 17.9 % (20.0-44.0); MEAN CORPUSCULAR HEMOGLOBIN 34 PG (26.0-33.0); MEAN CORPUSCULAR HGB CONC 34 g/dl (31.0-36.0); MEAN CORPUSCULAR VOLUME 100 fL (80-96); MONOCYTES # (AUTO) 0.6 K/uL (0.1-1.30); MONOCYTES % (AUTO) 12.1 % (2.0-12.0); NEUTROPHILS # (AUTO) 3.5 K/uL (1.8-8.9); NEUTROPHILS % (AUTO) 68.3 % (43.0-81.0); PLATELET COUNT (AUTO) 104 K/uL (150-450); RED BLOOD CELL COUNT(AUTO) 3.82 MIL/uL (4.5-6.0); RED CELL DISTRIBUTION WIDTH 15.4 % (11.5-15.0); WHITE BLOOD COUNT (AUTO) 5.1 K/uL (4.3-11.0)
[2023-09-22 08:37] VITALS: BP 110/72; TEMP 97.5; O2SAT 94
[2023-09-22 08:50] LABS: CALCIUM, SERUM 8.4 mg/dL (8.5-10.1); CARBON DIOXIDE 27 mmol/L (21-32); CHLORIDE 106 mmol/L (98-107); CREATININE 0.8 mg/dL (0.6-1.3); GLUCOSE 102 mg/dL (74-106); MAGNESIUM 2.2 mg/dL (1.8-2.4); PHOSPHORUS 3.6 mg/dL (2.5-4.9); POTASSIUM 4.2 mmol/L (3.5-5.1); SODIUM SERUM 139 mmol/L (136-145); UREA NITROGEN, BLOOD 20 mg/dL (7-18)
[2023-09-22 12:00] VITALS: BP 119/58; TEMP 97.5; O2SAT 98
[2023-09-22] MEDS: CYANOCOBALAMIN 1,000 MCG/ML VIAL IM SCH (12:25)
[2023-09-22 16:42] VITALS: BP 102/64; TEMP 97.5; O2SAT 95
[2023-09-22 20:00] VITALS: BP 96/61; TEMP 97.9; O2SAT 94
[2023-09-23] VITALS: BP 125/80; TEMP 97.6; O2SAT 96
[2023-09-23 04:00] VITALS: BP 116/75; TEMP 97.9; O2SAT 99
[2023-09-23 07:39] LABS: BASOPHILS % (AUTO) 0.3 % (0.0-2.0); EOSINOPHILS % (AUTO) 1.1 % (0.0-6.0); HEMATOCRIT 37 % (39-51); HEMOGLOBIN 12.5 g/dL (13.5-17.5); LYMPHOCYTES # (AUTO) 0.8 K/uL (0.8-4.8); LYMPHOCYTES % (AUTO) 18.5 % (20.0-44.0); MEAN CORPUSCULAR HEMOGLOBIN 33 PG (26.0-33.0); MEAN CORPUSCULAR HGB CONC 34 g/dl (31.0-36.0); MEAN CORPUSCULAR VOLUME 99 fL (80-96); MONOCYTES # (AUTO) 0.5 K/uL (0.1-1.30); MONOCYTES % (AUTO) 11.2 % (2.0-12.0); NEUTROPHILS # (AUTO) 2.9 K/uL (1.8-8.9); NEUTROPHILS % (AUTO) 68.9 % (43.0-81.0); PLATELET COUNT (AUTO) 133 K/uL (150-450); RED BLOOD CELL COUNT(AUTO) 3.76 MIL/uL (4.5-6.0); WHITE BLOOD COUNT (AUTO) 4.2 K/uL (4.3-11.0)
[2023-09-23 08:00] VITALS: BP 108/70; TEMP 98.2; O2SAT 97
[2023-09-23 08:25] LABS: CALCIUM, SERUM 8.2 mg/dL (8.5-10.1); CARBON DIOXIDE 24 mmol/L (21-32); CHLORIDE 106 mmol/L (98-107); CREATININE 0.8 mg/dL (0.6-1.3); GLUCOSE 100 mg/dL (74-106); PHOSPHORUS 3.5 mg/dL (2.5-4.9); SODIUM SERUM 138 mmol/L (136-145); UREA NITROGEN, BLOOD 19 mg/dL (7-18)
[2023-09-23 09:07] LABS: *ANA ANTI-CENTROMERE B AB <0.2 AI (0.0-0.9); *ANA ANTI-DNA(DS) AB, QN 2 IU/mL (0-9); *ANA ANTI-JO-1 <0.2 AI (0.0-0.9); *ANA ANTICHROMATIN ANTIBODY <0.2 AI (0.0-0.9); *ANA RNP ANTIBODIES 0.4 AI (0.0-0.9); *ANA SJOGREN'S ANTI-SS-A <0.2 AI (0.0-0.9); *ANA SJOGREN'S ANTI-SS-B <0.2 AI (0.0-0.9); *ANAANTI-SCLERODERMA-70 AB <0.2 AI (0.0-0.9); *ANASMITH AB <0.2 AI (0.0-0.9)
[2023-09-23 16:00] VITALS: BP 123/53; TEMP 98.3; O2SAT 98
[2023-09-23 16:01] VITALS: BP 105/62; TEMP 98.7; O2SAT 99
[2023-09-23 20:00] VITALS: BP 101/62; TEMP 102.2; O2SAT 96
[2023-09-24] VITALS: BP 93/63; TEMP 97.5; O2SAT 97
[2023-09-24 04:00] VITALS: BP 117/98; TEMP 97.7; O2SAT 96
[2023-09-24 08:12] LABS: CALCIUM, SERUM 8.5 mg/dL (8.5-10.1); CARBON DIOXIDE 23 mmol/L (21-32); CHLORIDE 105 mmol/L (98-107); CREATININE 0.7 mg/dL (0.6-1.3); GLUCOSE 93 mg/dL (74-106); POTASSIUM 4.2 mmol/L (3.5-5.1); SODIUM SERUM 136 mmol/L (136-145); UREA NITROGEN, BLOOD 17 mg/dL (7-18)
[2023-09-24 09:39] VITALS: BP 121/86
[2023-09-24] MEDS ORDERED: VANCOMYCIN 750 MG in IV D5W 250 ML IV SCH (23:00)
== END 2023-09-24 14:30 | disposition hospice, home (50) | DRG 602 ==
LOC: ER 19:53 → MED 23:06 → TELE 09-21 00:25 → MED 09-23 09:32 → TELE 09-23 22:03 → MED 09-24 02:30 → TELE 09-24 05:45 → MED 09-24 10:29
DX: L03.211 Cellulitis of face (principal); G93.41 Metabolic encephalopathy; N39.0 Urinary tract infection, site not specified; I48.20 Chronic atrial fibrillation, unspecified; I50.30 Unspecified diastolic (congestive) heart failure; F01.53 Vascular dementia, unspecified severity, with mood disturbance; I25.10 Atherosclerotic heart disease of native coronary artery without angina pectoris; Z86.73 Personal history of transient ischemic attack (TIA), and cerebral infarction without residual deficits; D69.6 Thrombocytopenia, unspecified; Z95.1 Presence of aortocoronary bypass graft; E78.00 Pure hypercholesterolemia, unspecified; E78.5 Hyperlipidemia, unspecified; E11.9 Type 2 diabetes mellitus without complications; F32.A Depression, unspecified; Z90.79 Acquired absence of other genital organ(s); Z79.01 Long term (current) use of anticoagulants; Z79.899 Other long term (current) drug therapy; B96.89 Other specified bacterial agents as the cause of diseases classified elsewhere; I11.0 Hypertensive heart disease with heart failure; E88.09 Other disorders of plasma-protein metabolism, not elsewhere classified; G93.89 Other specified disorders of brain; Z79.84 Long term (current) use of oral hypoglycemic drugs; Z87.891 Personal history of nicotine dependence; G40.909 Epilepsy, unspecified, not intractable, without status epilepticus; W19.XXXA Unspecified fall, initial encounter; Y92.9 Unspecified place or not applicable; R21 Rash and other nonspecific skin eruption; E53.8 Deficiency of other specified B group vitamins; E86.0 Dehydration; R54 Age-related physical debility
CPT/HCPCS: 36415; 70450-TC; 70486-TC; 71045-TC; 80048-TC; 80076-TC; 80202-TC; 81001; 82550-TC; 82607-TC; 82962-TC; 83605-TC; 83735-TC; 83921; 84100-TC; 84443-TC; 84484-TC; 85025-TC; 85652-TC; 85730-TC; 86140-TC; 86225; 86235; 87040-TC; 87086-TC; 97112-TC; 97116-TC; 97530-TC; A4223; G0378; J0696; J1815; J3370; J3371; J3420; J7030; J7060

== ENCOUNTER 2025-01-10 22:44 | Inpatient (IN) | payer MEDICARE, OTHER ==
[~2025-01-10] VITALS: Ht 170.2 cm; Wt 73.6 kg
[2025-01-10] MEDS: IV NS 0.9% 1,000 ML BAG IV ONE (23:20)
[2025-01-10] MEDS ORDERED: DILTIAZEM HCL IV 125 MG in IV NS 0.9% 100 ML IV PRN (23:30)
[2025-01-10] MEDS ORDERED: ACETAMINOPHEN ES 500 MG TABLET ONE (23:31)
[2025-01-10] MEDS: ACETAMINOPHEN ES 500 MG TABLET PO ONE (23:35)
[2025-01-10] MEDS ORDERED: DILTIAZEM HCL 50 MG IV ONE (23:36)
[2025-01-10] MEDS ORDERED: DILTIAZEM HCL 25 MG IV ONE (23:40)
[2025-01-10] MEDS: DILTIAZEM HCL 50 MG IV IV ONE (23:43)
[2025-01-11 00:07] LABS: PLATELET COUNT (AUTO) 111 K/uL (150-450); RED BLOOD CELL COUNT(AUTO) 4.62 MIL/uL (4.5-6.0); RED CELL DISTRIBUTION WIDTH 18.0 % (11.5-15.0); WHITE BLOOD COUNT (AUTO) 3.6 K/uL (4.3-11.0)
[2025-01-11 00:16] LABS: CALCIUM, SERUM 9.1 mg/dL (8.5-10.1); CREATININE 1.3 mg/dL (0.6-1.3); SODIUM SERUM 138 mmol/L (136-145); UREA NITROGEN, BLOOD 29 mg/dL (7-18)
[2025-01-11 00:18] LABS: INR 1.18 (0.91-1.10)
[2025-01-11 00:22] LABS: ASPARTATE AMINOTRANSFERASE 22 U/L (15-37); TOTAL PROTEIN, SERUM 8.1 g/dL (6.4-8.2)
[2025-01-11 00:24] LABS: LACTIC ACID 2.0 mmol/L (0.4-2.0)
[2025-01-11 01:46] LABS: APPEARANCE,URINE CLEAR (CLEAR); BLOOD, URINE 2+ Ery/uL (NEGATIVE); LEUKOCYTE ESTERASE ,URINE NEGATIVE (NEGATIVE); NITRITE, URINE NEGATIVE (NEGATIVE); UGLUCOSE 3+ mg/dL (NEGATIVE)
[2025-01-11 01:54] LABS: LYMPHOCYTES % (MANUAL) 20 % (16-48); MONOCYTES % (MANUAL) 20 % (0-11.0); NEUTROPHILS % (MANUAL) 60 (42-76); PLATELET ESTIMATE DECREASED
[2025-01-11 02:06] LABS: ADD URINE CULTURE NO; SQUAMOUS EPITHELIAL CELL,UR 0-2 /HPF (None Seen)
[2025-01-11] MEDS ORDERED: ERGO500040 PO (02:14)
[2025-01-11] MEDS ORDERED: METO-357 PO (02:14)
[2025-01-11] MEDS ORDERED: VALA10002 PO (02:14)
[2025-01-11] MEDS ORDERED: ONDANSETRON HCL/PF 4 MG/2 ML VIAL IVP PRN (02:30)
[2025-01-11] MEDS ORDERED: MAG HYDROX/AL HYDROX/SIMETH 30 ML UDC PO PRN (02:30)
[2025-01-11] MEDS ORDERED: Z GUARD REMEDY 4 OZ OINT TP PRN (02:30)
[2025-01-11] MEDS ORDERED: ACETAMINOPHEN 325 MG TABLET PO PRN (02:30)
[2025-01-11] MEDS ORDERED: MAGNESIUM HYDROXIDE 30 ML UDC PO PRN (02:30)
[2025-01-11] MEDS: DILTIAZEM HCL IV 125 MG in IV NS 0.9% 100 ML IV PRN (02:45)
[2025-01-11] MEDS ORDERED: DILTIAZEM HCL IV 125 MG in IV NS 0.9% 100 ML IV PRN ×2 (03:00→03:30)
[2025-01-11] MEDS ORDERED: DAPA10TA PO (03:16)
[2025-01-11] MEDS ORDERED: VALS80TA2 GT (03:16)
[2025-01-11 04:00] VITALS: BP 112/78; TEMP 98.6; O2SAT 97
[2025-01-11 07:29] LABS: PLATELET COUNT (AUTO) 108 K/uL (150-450); RED BLOOD CELL COUNT(AUTO) 4.33 MIL/uL (4.5-6.0); RED CELL DISTRIBUTION WIDTH 17.2 % (11.5-15.0); WHITE BLOOD COUNT (AUTO) 3.1 K/uL (4.3-11.0)
[2025-01-11 07:35] LABS: CALCIUM, SERUM 8.5 mg/dL (8.5-10.1); CREATININE 1.0 mg/dL (0.6-1.3); PHOSPHORUS 3.9 mg/dL (2.5-4.9); SODIUM SERUM 138.0 mmol/L (136-145); UREA NITROGEN, BLOOD 24.0 mg/dL (7-18)
[2025-01-11] MEDS: PANTOPRAZOLE 40 MG TABLET.DR PO SCH (07:48)
[2025-01-11 08:00] VITALS: BP 130/79; TEMP 97.9; O2SAT 97
[2025-01-11] MEDS: VALACYCLOVIR HCL 500 MG TABLET PO SCH (08:09)
[2025-01-11] MEDS: VALSARTAN 80 MG TABLET GT SCH (10:39)
[2025-01-11] MEDS: METOPROLOL SUCCINATE 50 MG TAB.SR.24H PO SCH (10:40)
[2025-01-11 10:59] LABS: EOSINOPHILS % (MANUAL) 1 % (0-4); LYMPHOCYTES % (MANUAL) 21 % (16-48); MONOCYTES % (MANUAL) 15 % (0-11.0); NEUTROPHILS % (MANUAL) 63 (42-76); PLATELET ESTIMATE DECREASED
[2025-01-11 12:00] VITALS: BP 125/86; TEMP 98.1; O2SAT 98
[2025-01-11] MEDS: DAPAGLIFLOZIN PROPANEDIOL 10 MG TABLET PO SCH (12:15)
[2025-01-11] MEDS: DIGOXIN INJ 0.5 MG/2 ML AMPUL IV SCH (12:15)
[2025-01-11 16:00] VITALS: BP 133/89; TEMP 98.2; O2SAT 96
[2025-01-11 20:00] VITALS: BP 142/95; TEMP 98; O2SAT 96
[2025-01-12] VITALS: BP 123/95; TEMP 97.9; O2SAT 97
[2025-01-12 04:00] VITALS: BP 103/73; TEMP 97.9; O2SAT 95
[2025-01-12 08:00] VITALS: BP 91/69; TEMP 97.7; O2SAT 94
[2025-01-12] MEDS: ATORVASTATIN 40 MG TABLET PO SCH (08:56)
[2025-01-12] MEDS: ESCITALOPRAM OXALATE (10 MG) 10 MG TABLET PO SCH (08:57)
[2025-01-12] MEDS: APIXABAN 5 MG TABLET PO SCH (10:49)
[2025-01-12 12:00] VITALS: BP 90/70; TEMP 98.1; O2SAT 94
[2025-01-12] MEDS: DIGOXIN 0.25 MG TABLET PO SCH (13:41)
[2025-01-12 16:00] VITALS: BP 89/55; TEMP 97.5; O2SAT 97
[2025-01-12] MEDS ORDERED: VALA500T PO (16:37)
[2025-01-12] MEDS ORDERED: APIX5TAB PO (16:37)
[2025-01-12] MEDS ORDERED: DIGO125T PO (16:37)
== END 2025-01-12 18:55 | disposition home or self-care (01) | DRG 596 ==
LOC: ER 22:52 → TELE1 01-11 01:39 → TELE-TD 01-11 02:19 → TELE1 01-11 10:25
PROVIDERS: ADMIT Internal Medicine; ATTEND Internal Medicine
DX: B02.9 Zoster without complications (principal); G93.40 Encephalopathy, unspecified; D68.59 Other primary thrombophilia; I50.42 Chronic combined systolic (congestive) and diastolic (congestive) heart failure; D69.59 Other secondary thrombocytopenia; D64.9 Anemia, unspecified; E11.9 Type 2 diabetes mellitus without complications; D72.819 Decreased white blood cell count, unspecified; I11.0 Hypertensive heart disease with heart failure; F32.A Depression, unspecified; E78.00 Pure hypercholesterolemia, unspecified; I25.10 Atherosclerotic heart disease of native coronary artery without angina pectoris; Z20.822 Contact with and (suspected) exposure to COVID-19; I48.91 Unspecified atrial fibrillation; Z90.49 Acquired absence of other specified parts of digestive tract; Z87.891 Personal history of nicotine dependence; Z79.84 Long term (current) use of oral hypoglycemic drugs; Z79.899 Other long term (current) drug therapy; Z95.1 Presence of aortocoronary bypass graft; Z79.01 Long term (current) use of anticoagulants; Z86.73 Personal history of transient ischemic attack (TIA), and cerebral infarction without residual deficits; Z90.79 Acquired absence of other genital organ(s); Z86.79 Personal history of other diseases of the circulatory system
CPT/HCPCS: 36415; 70450-TC; 71045-TC; 80048-TC; 80076-TC; 81001; 83605-TC; 83735-TC; 83880; 84100-TC; 84484-TC; 85027-TC; 85730-TC; 87040-TC; 87086-TC; 93307-TC; 97110-TC; 97116-TC; 97530-TC; A4223; G0378; J1160; J3490; J7030